=== PATIENT | female | born 1990 | race Caucasian/White ===

== ENCOUNTER 2017-07-13 13:05 | Emergency (ER) | payer BC, MEDICAID ==
[~2017-07-13] VITALS: Ht 182.9 cm; Wt 79.4 kg
[2017-07-13] MEDS ORDERED: [UNRECOGNIZED DRUG - OTHER] (13:26)
[2017-07-13 14:37] LABS: BASOPHILS % (AUTO) 0 % (0-10); EOSINOPHILS # (AUTO) 0.1 10^3/uL (0.0-0.3); EOSINOPHILS % (AUTO) 1 % (0-10); LYMPHOCYTES # (AUTO) 1.8 X 10^3 (1.0-4.0); LYMPHOCYTES % (AUTO) 22 % (12-44); MEAN CORPUSCULAR HEMOGLOBIN 32 PG (25-34); MEAN CORPUSCULAR HGB CONC 34 G/DL (32-36); MEAN CORPUSCULAR VOLUME 94 FL (80-99); MEAN PLATELET VOLUME 10.2 FL (7.4-10.4); MONOCYTES # (AUTO) 0.5 X 10^3 (0.0-1.0); MONOCYTES % (AUTO) 7 % (0-12); NEUTROPHILS # (AUTO) 5.9 X 10^3 (1.8-7.8); NEUTROPHILS % (AUTO) 71 % (42-75); PLATELET COUNT 263 10^3/uL (130-400); RED BLOOD COUNT 4.45 10^6/uL (4.35-5.85); RED CELL DISTRIBUTION WIDTH 12.5 % (10.0-14.5); WHITE BLOOD COUNT 8.3 10^3/uL (4.3-11.0)
--- NOTE | 2017-07-13 14:37 | ED GU-Female ---
General Chief Complaint: -Female Stated Complaint: 10 WKS PREG/SPOTTING/CRAMPS Nursing Triage Note: AMB TO ROOM REPORTS IS APX 9 WEEKS PREG WAS SEEN ON FRIDAY AT [facility] FOR UTI STARTED ON OMINCEF TODAY APX 3-4 HRS UNDERBASTER ONSET OF SPOTTING WTIH CRAMPING REPORTS LOOKS LIKE MAY BE PASSING SOME TISSUE. WAS TOLD BY [facility] TO COME HERE DUE TO THEY HAVE NO WAY TO DO SONO. Nursing Sepsis Screen: No Definite Risk Source: patient Exam Limitations: no limitations History of Present Illness Time seen by provider: 14:36 Initial Comments 27-year-old female patient presents to the emergency Department with reports of vaginal bleeding and lower abdominal cramping beginning today. Patient is approximately 9 weeks based on her last ultrasound by Dr. Sandy. Was seen Friday at [facility] in [place] and diagnosed with urinary tract infection. Patient states she started on Omnicef today. Denies fever, dysuria , frequency. Patient states she has seen Dr. washington for this in [place]. States the first ultrasound performed by Dr. washington reported her to be 4 weeks ; however, patient states she should have been approximately 9 weeks at the time of ultrasound. Patient reports by last menstrual period she should be approximately 12-13 weeks now. Eleni is concerned that she has miscarried as she does not have morning sickness like with her previous pregnancies and her breasts are no longer tender. Timing/Duration: this morning Severity/Quality: cramping Location: suprapubic Radiation: none Prior Genitourinary Problems: similar symptoms Sexual [place] History: less than 2 months ago, single partner Allergies and Home Medications Home Medications [Omincef] , (Reported) Constitutional: No chills, No dizziness, No fever, No malaise, No weakness Respiratory: No cough, No dyspnea on exertion, No short of breath Cardiovascular: No chest pain, No edema, No syncope Gastrointestinal: abdominal pain (lower abdominal cramping), No constipation, No diarrhea, No nausea, No vomiting Genitourinary: denies burning, denies discharge, denies dysuria, denies frequency, denies flank pain, denies hematuria, pain (suprapubic) Musculoskeletal: no symptoms reported Skin: no symptoms reported Psychiatric/Neurological: No Symptoms Reported All Other Systemes Reviewed Negative Unless Noted: Yes (Negative excepted noted.) Past Obortkw-Vmncvo-Apstow Hx Patient Social History Alcohol Use: Denies Use Recreational Drug Use: No Smoking Status: Never a Smoker Recent Foreign Travel: No Contact w/Someone Who Travel: No Recent Infectious Disease Expo: No Surgeries History of Surgeries: No Respiratory History of Respiratory Disorde: No Cardiovascular History of Cardiac Disorders: No Neurological History of Neurological Disord: No Reproductive System : Yes Hx : 6 Hx Para: 3 Hx Total # of Abortions (Spona: 2 Hx Reproductive Disorders: No Sexually Transmitted Disease: No Female Reproductive Disorders: Denies Genitourinary History of Genitourinary Disor: No Gastrointestinal History of Gastrointestinal Di: No Musculoskeletal History of Musculoskeletal Dis: No Endocrine History of Endocrine Disorders: No Reviewed Nursing Assessment Reviewed/Agree w Nursing PMH: Yes Family Medical History Significant Family History: No Pertinent Family Hx Physical Exam Vital Signs Vital Sign - Last 12Hours 07/13/17 07/13/17 13:16 16:54 Temp 97.9 Pulse 86 Resp 18 B/P (MAP) 132/85 Pulse Ox 99 Capillary Refill : Less Than 3 Seconds General Appearance: WD/WN, no apparent distress HEENT: PERRL/EOMI, pharynx normal Neck: supple, normal inspection Cardiovascular: normal peripheral pulses, regular rate, rhythm, no edema, no murmur Respiratory: lungs clear, normal breath sounds, no respiratory distress, no accessory muscle use Gastrointestinal: normal bowel sounds, non tender, soft, no organomegaly, No distended Back: normal inspection, no CVA tenderness Extremities: no pedal edema, no calf tenderness, normal capillary refill Neurologic/Psychiatric: alert, normal mood/affect, oriented x 3 Skin: normal color, warm/dry Progress/Results/Core Measures Results/Orders Lab Results Laboratory Tests Test 07/13/17 14:15 07/13/17 15:56 Range/Units White Blood Count 8.3 4.3-11.0 10^3/uL Red Blood Count 4.45 4.35-5.85 10^6/uL Hemoglobin 14.2 11.5-16.0 G/DL Hematocrit 42 35-52 % Mean Corpuscular Volume 94 80-99 FL Mean Corpuscular Hemoglobin 32 25-34 PG Mean Corpuscular Hemoglobin Concent 34 32-36 G/DL Red Cell Distribution Width 12.5 10.0-14.5 % Platelet Count 263 130-400 10^3/uL Mean Platelet Volume 10.2 7.4-10.4 FL Neutrophils (%) (Auto) 71 42-75 % Lymphocytes (%) (Auto) 22 12-44 % Monocytes (%) (Auto) 7 0-12 % Eosinophils (%) (Auto) 1 0-10 % Basophils (%) (Auto) 0 0-10 % Neutrophils # (Auto) 5.9 1.8-7.8 X 10^3 Lymphocytes # (Auto) 1.8 1.0-4.0 X 10^3 Monocytes # (Auto) 0.5 0.0-1.0 X 10^3 Eosinophils # (Auto) 0.1 0.0-0.3 10^3/uL Basophils # (Auto) 0.0 0.0-0.1 10^3/uL Human Chorionic Gonadotropin, Quant [id number] H <5 MIU/ML Urine Color YELLOW Urine Clarity CLEAR Urine pH 7 5-9 Urine Specific [place] 1.010 L 1.016-1.022 Urine Protein NEGATIVE NEGATIVE Urine Glucose (UA) NEGATIVE NEGATIVE Urine Ketones NEGATIVE NEGATIVE Urine Nitrite NEGATIVE NEGATIVE Urine Bilirubin NEGATIVE NEGATIVE Urine Urobilinogen NORMAL NORMAL MG/DL Urine Leukocyte Esterase NEGATIVE NEGATIVE Urine RBC (Auto) NEGATIVE NEGATIVE Urine RBC NONE /HPF Urine WBC NONE /HPF Urine Squamous Epithelial Cells 5-10 /HPF Urine Crystals NONE /LPF Urine Bacteria NEGATIVE /HPF Urine Casts NONE /LPF Urine Mucus NEGATIVE /LPF Urine Culture Indicated NO My Orders Orders - JOHN MAYEN Cbc With Automated Diff (07/13/17 13:56) Hcg,Quantitative (07/13/17 13:56) Ua Culture If Indicated (07/13/17 13:56) Abo Rh Type (07/13/17 13:56) Us Ob Single Fetus<14 [id number] (07/13/17 13:56) Vital Signs/I&O Vital Sign - Last 12Hours 07/13/17 07/13/17 13:16 16:54 Temp 97.9 Pulse 86 75 Resp 18 18 B/P (MAP) 132/85 Pulse Ox 99 Blood Pressure Mean: 101 Diagnostic Imaging Diagonstic Imaging: Ultrasound Plain Films/CT/US/NM/MRI: pelvis Comments FINDINGS: The uterus measures 10.5 x 8.3 x 7.6 cm in size. There is an intrauterine gestational sac versus pseudogestational sac which measures 2.6 x 2.1 cm in size. There is no demonstrated pole or yolk sac. There are crescentic areas of hypoechogenicity adjacent to the cystic structure which potentially could relate to subchorionic hematoma. The right and left ovary are not well seen. There is no demonstrated adnexal mass. There is no free pelvic fluid. IMPRESSION: 1. Gestational sac versus pseudogestational sac measuring 2.6 x 2.1 cm in size. Gestational sac measurements would predict age of 7 weeks and 5 days +/-1 week. No identified yolk sac or pole. Recommend correlation with beta hCG values and clinically. 2. Nonvisualization of the ovaries. 3. No demonstrated adnexal mass. 4. No free pelvic fluid. 5. Crescentic hypoechoic areas subjacent to the cystic structure in the uterus which may relate to subchorionic hematoma. Dictated by: Dictated on workstation # [id number] Reviewed: Reviewed by Me (radiology report reviewed by me) Departure Communication (Admissions) Progress Notes [facility] records reviewed. the only progress note or H&P is from the quick care visit on fr[facility]. No record of ultrasound performed at [place] in documentation faxed from [facility]. [id number] all laboratory and diagnostic findings discussed with the patient. Patient reports that during the ultrasound by Dr. Sandy they were able to see a pole and gestational sac. I discussed with the patient that based on her symptoms, history, and ultrasound findings she is most likely having a threatened miscarriage versus blighted ovum. Patient is to follow-up with Dr. Sandy for recheck. Patient states she would like to transfer her obstetrical care to [facility]. I've given patient the local physician listing. She states she would like to see someone in Dr. Ramirez/Dr. Mayer's office to establish care. Patient will call Dr. Ramirez's office tomorrow morning for appointment time. Impression Impression: Primary Impression: Threatened miscarriage Disposition: HOME, SELF-CARE Condition: Improved Departure-Patient Inst. Decision time for Depature: 16:45 Referrals: NO,LOCAL PHYSICIAN (PCP/Family) Primary Care Physician Patient Instructions: Bleeding With (DC), Threatened Miscarriage (DC) Add. Discharge Instructions: All discharge instructions reviewed with patient and/or family. Voiced understanding. Continue usual home medications. Drink plenty of fluids. No intercourse, tampons, or strenuous activity until released by Dr. Sandy. Follow -up with Dr. Sandy Friday or Friday for recheck, repeat labs, and repeat outpatient ultrasound. Call first thing Friday morning for appointment time. Return to the emergency department for worsened pain, vaginal bleeding with greater than 2 pads per hour for greater than 2 hours, vaginal discharge, inability to urinate, abdominal swelling, or any other concerns. 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 Sandy. Copy Copies To 1: ARIS RAMIREZ GRETCHEN L PA Jul 13, 2017 14:37
--- NOTE | 2017-07-13 15:48 | Diagnostic Imaging Report ---
EXAM: Ultrasound OB less than 14 weeks. DATE: July 13, 2017. INDICATION: 27-year-old female, spotting and cramping. COMPARISON: None. FINDINGS: The uterus measures 10.5 x 8.3 x 7.6 cm in size. There is an intrauterine gestational sac versus pseudogestational sac which measures 2.6 x 2.1 cm in size. There is no demonstrated pole or yolk sac. There are crescentic areas of hypoechogenicity adjacent to the cystic structure which potentially could relate to subchorionic hematoma. The right and left ovary are not well seen. There is no demonstrated adnexal mass. There is no free pelvic fluid. IMPRESSION: 1. Gestational sac versus pseudogestational sac measuring 2.6 x 2.1 cm in size. Gestational sac measurements would predict age of 7 weeks and 5 days +/-1 week. No identified yolk sac or pole. Recommend correlation with beta hCG values and clinically. 2. Nonvisualization of the ovaries. 3. No demonstrated adnexal mass. 4. No free pelvic fluid. 5. Crescentic hypoechoic areas subjacent to the cystic structure in the uterus which may relate to subchorionic hematoma. Dictated by: Dictated on workstation # [id number]
[2017-07-13 16:06] LABS: BILIRUBIN,URINE NEGATIVE (NEGATIVE); KETONES,URINE NEGATIVE (NEGATIVE); LEUKOCYTE ESTERASE ,URINE NEGATIVE (NEGATIVE); NITRITE,URINE NEGATIVE (NEGATIVE); PH,URINE 7 (5-9); PROTEIN,URINE NEGATIVE (NEGATIVE); UROBILINOGEN,URINE NORMAL (NORMAL)
[2017-07-13 16:54] VITALS: BP 130/78
== END 2017-07-13 16:54 | disposition home or self-care (01) ==
LOC: ER 13:11
DX: O20.0 Threatened abortion (principal); Z3A.01 Less than 8 weeks gestation of pregnancy
CPT/HCPCS: 36415; 76801; 81000; 84702; 85025; 86900; 86901; 99282

== ENCOUNTER 2017-11-07 14:43 | Emergency (ER) | payer BC, MEDICAID ==
[~2017-11-07] VITALS: Ht 180.3 cm; Wt 77.1 kg
[~2017-11-07 14:43] MED LIST: [UNRECOGNIZED DRUG - OTHER]
[2017-11-07 15:37] LABS: BASOPHILS % (AUTO) 0 % (0-10); EOSINOPHILS # (AUTO) 0.1 10^3/uL (0.0-0.3); EOSINOPHILS % (AUTO) 1 % (0-10); HEMATOCRIT 37 % (35-52); HEMOGLOBIN 12.6 G/DL (11.5-16.0); LYMPHOCYTES # (AUTO) 2.4 X 10^3 (1.0-4.0); LYMPHOCYTES % (AUTO) 20 % (12-44); MEAN CORPUSCULAR HEMOGLOBIN 31 PG (25-34); MEAN CORPUSCULAR HGB CONC 34 G/DL (32-36); MEAN CORPUSCULAR VOLUME 92 FL (80-99); MEAN PLATELET VOLUME 9.7 FL (7.4-10.4); MONOCYTES # (AUTO) 0.7 X 10^3 (0.0-1.0); MONOCYTES % (AUTO) 6 % (0-12); NEUTROPHILS # (AUTO) 8.6 X 10^3 (1.8-7.8); NEUTROPHILS % (AUTO) 72 % (42-75); PLATELET COUNT 259 10^3/uL (130-400); RED BLOOD COUNT 4.01 10^6/uL (4.35-5.85); RED CELL DISTRIBUTION WIDTH 13.6 % (10.0-14.5); WHITE BLOOD COUNT 11.8 10^3/uL (4.3-11.0)
--- NOTE | 2017-11-07 15:43 | ED GU-Female ---
General Chief Complaint: -Female Stated Complaint: CRAMPING/VAG BLEEDING 13 WKS PREG Source: patient Exam Limitations: no limitations History of Present Illness Date Seen by Provider: Nov 07, 2017 Time Seen by Provider: 15:42 Initial Comments To ER with vaginal bleeding and lower abdominal cramping. The cramping began earlier this morning and was mild and the bleeding begins afternoon and also is mild. She's only had a bit of blood on the toilet paper when wiping after urinating. No fevers or chills. She is about 13 weeks gestation Ab2. Her voice professor is Dr. Antonino Sandy in [place] and she has follow-up scheduled with him on November 20. She is currently on prenatals with extra folic acid and progesterone Timing/Duration: constant Severity/Quality: cramping Location: suprapubic Radiation: none Sexual [place] History: not active Associated Symptoms: denies symptoms Allergies and Home Medications Home Medications Buspirone HCl 15 Mg Tablet, (Reported) Folic Acid 1 Mg Tablet, (Reported) Progesterone,Micronized 200 Mg Capsule, (Reported) [ Vit] , Unknown Dose, (Reported) Constitutional: see HPI EENTM: see HPI Respiratory: no symptoms reported Cardiovascular: no symptoms reported Genitourinary: no symptoms reported Musculoskeletal: no symptoms reported Skin: no symptoms reported Psychiatric/Neurological: No Symptoms Reported Past Atwgupk-Eiauti-Lyefvf Hx Patient Social History Recent Foreign Travel: No Contact w/Someone Who Travel: No Surgeries History of Surgeries: No Respiratory History of Respiratory Disorde: No Cardiovascular History of Cardiac Disorders: No Neurological History of Neurological Disord: No Reproductive System Hx Reproductive Disorders: No Sexually Transmitted Disease: No Female Reproductive Disorders: Denies Genitourinary History of Genitourinary Disor: No Gastrointestinal History of Gastrointestinal Di: No Musculoskeletal History of Musculoskeletal Dis: No Endocrine History of Endocrine Disorders: No Family Medical History Significant Family History: No Pertinent Family Hx Physical Exam Vital Signs Vital Sign - Last 12Hours 11/07/17 15:32 Temp 97.9 Pulse 94 Resp 18 B/P (MAP) 107/73 (84) Pulse Ox 99 Capillary Refill : General Appearance: WD/WN, no apparent distress HEENT: PERRL/EOMI Neck: non-tender, full range of motion Cardiovascular: regular rate, rhythm, no murmur Respiratory: normal breath sounds, no respiratory distress, no accessory muscle use Gastrointestinal: normal bowel sounds, non tender Neurologic/Psychiatric: alert, normal mood/affect, oriented x 3 Skin: normal color, warm/dry Progress/Results/Core Measures Suspected Sepsis SIRS Temperature: Pulse: Respiratory Rate: Laboratory Tests 11/07/17 15:31: White Blood Count 11.8H Blood Pressure / Mean: Laboratory Tests 11/07/17 15:31: Platelet Count 259 Results/Orders Lab Results Laboratory Tests Test 11/07/17 15:31 11/07/17 15:55 Range/Units White Blood Count 11.8 H 4.3-11.0 10^3/uL Red Blood Count 4.01 L 4.35-5.85 10^6/uL Hemoglobin 12.6 11.5-16.0 G/DL Hematocrit 37 35-52 % Mean Corpuscular Volume 92 80-99 FL Mean Corpuscular Hemoglobin 31 25-34 PG Mean Corpuscular Hemoglobin Concent 34 32-36 G/DL Red Cell Distribution Width 13.6 10.0-14.5 % Platelet Count 259 130-400 10^3/uL Mean Platelet Volume 9.7 7.4-10.4 FL Neutrophils (%) (Auto) 72 42-75 % Lymphocytes (%) (Auto) 20 12-44 % Monocytes (%) (Auto) 6 0-12 % Eosinophils (%) (Auto) 1 0-10 % Basophils (%) (Auto) 0 0-10 % Neutrophils # (Auto) 8.6 H 1.8-7.8 X 10^3 Lymphocytes # (Auto) 2.4 1.0-4.0 X 10^3 Monocytes # (Auto) 0.7 0.0-1.0 X 10^3 Eosinophils # (Auto) 0.1 0.0-0.3 10^3/uL Basophils # (Auto) 0.0 0.0-0.1 10^3/uL Human Chorionic Gonadotropin, Quant [id number] H <5 MIU/ML Urine Color YELLOW Urine Clarity CLEAR Urine pH 5 5-9 Urine Specific [place] 1.030 H 1.016-1.022 Urine Protein NEGATIVE NEGATIVE Urine Glucose (UA) NEGATIVE NEGATIVE Urine Ketones NEGATIVE NEGATIVE Urine Nitrite NEGATIVE NEGATIVE Urine Bilirubin NEGATIVE NEGATIVE Urine Urobilinogen NORMAL NORMAL MG/DL Urine Leukocyte Esterase NEGATIVE NEGATIVE Urine RBC (Auto) 3+ H NEGATIVE Urine RBC RARE /HPF Urine WBC NONE /HPF Urine Squamous Epithelial Cells 5-10 /HPF Urine Crystals NONE /LPF Urine Bacteria TRACE /HPF Urine Casts NONE /LPF Urine Mucus NEGATIVE /LPF Urine Culture Indicated NO My Orders Orders - OMEGA CROSS APRN Cbc With Automated Diff (11/07/17 14:50) Ua Culture If Indicated (11/07/17 14:50) Urine Bedside (11/07/17 14:50) Hcg,Quantitative (11/07/17 14:50) Us Ob Single Fetus<14 [id number] (11/07/17 14:50) Vital Signs/I&O Vital Sign - Last 12Hours 11/07/17 15:32 Temp 97.9 Pulse 94 Resp 18 B/P (MAP) 107/73 (84) Pulse Ox 99 Capillary Refill : Diagnostic Imaging Diagonstic Imaging: Ultrasound Comments NAME: [facility] REC#: [id number] PT STATUS: REG ER : 1990 PHYSICIAN: OMEGA CROSS APRN ADMIT DATE: 11/07/17/ER Draft Date of Exam:11/07/17 US OB SINGLE FETUS<14 [id number] PROCEDURE: US OB SINGLE FETUS <14 WKS. TECHNIQUE: Multiple real-time grayscale images were obtained over the gravid uterus in various projections. INDICATION: Bleeding and cramping since this morning. COMPARISON: 07/13/2017. FINDINGS: A gestational sac is appropriately positioned within the uterus. The gestational sac has a normal morphology. Single live intrauterine is noted. The heart rate is 144 beats per minute. The amount of amniotic fluid appears visually appropriate. Based on crown-rump length, the estimated gestational age is 12 weeks and 3 days. A small subchorionic hemorrhage is noted and is of mixed echogenicity located along the margin of the gestational sac. This measures 2.9 x 1.5 x 0.9 cm. The adnexa are obscured by overlying bowel gas and therefore the ovaries are not seen. No free pelvic fluid. IMPRESSION: 1. Single live intrauterine . 2. Small subchorionic hemorrhage. The cervix remains closed. Dictated on workstation # [id number] Dict: 11/07/17 1538 Trans: 11/07/17 1542 [id number] Interpreted by: DWIGHT GAITAN MD Electronically signed by: Departure Impression Impression: Primary Impression: Threatened miscarriage in early Additional Impression: Vaginal bleeding affecting early Disposition: 01 HOME, SELF-CARE Condition: Stable Departure-Patient Inst. Decision time for Depature: 16:25 Referrals: NO,LOCAL PHYSICIAN (PCP/Family) Primary Care Physician Patient Instructions: Bleeding With (DC), Threatened Miscarriage Add. 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 It is imperative to follow-up with your voice professor next week. Return to ER for any concerns. Unfortunately there is nothing to be done to stop a miscarriage if it is going to happen at this stage of . Hopefully, this will progress into a normal without any further troubles. Continue current medications. OMEGA CROSS APRN Nov 07, 2017 15:43
[2017-11-07] MEDS ORDERED: BUSP15TA60 (15:48)
[2017-11-07] MEDS ORDERED: PRENATAL VIT (15:48)
[2017-11-07] MEDS ORDERED: FOLI1TAB24 (15:48)
[2017-11-07] MEDS ORDERED: PROG200C6 (15:48)
[2017-11-07 16:00] LABS: BILIRUBIN,URINE NEGATIVE (NEGATIVE); CLARITY,URINE CLEAR; COLOR,URINE YELLOW; GLUCOSE, URINE (UA) NEGATIVE (NEGATIVE); KETONES,URINE NEGATIVE (NEGATIVE); LEUKOCYTE ESTERASE ,URINE NEGATIVE (NEGATIVE); NITRITE,URINE NEGATIVE (NEGATIVE); PH,URINE 5 (5-9); PROTEIN,URINE NEGATIVE (NEGATIVE); UROBILINOGEN,URINE NORMAL (NORMAL)
[2017-11-07 16:08] LABS: BACTERIA,URINE TRACE /HPF; RBC,URINE RARE /HPF
[2017-11-07 16:38] VITALS: BP 107/73
== END 2017-11-07 16:37 | disposition home or self-care (01) ==
LOC: EDUNIT# 14:43 → ER 14:46
DX: O20.0 Threatened abortion (principal); Z3A.13 13 weeks gestation of pregnancy
CPT/HCPCS: 36415; 76801; 81000; 84702; 85025; 99282

== ENCOUNTER → 2019-07-16 | Outpatient (CLI) | payer MEDICAID ==
[~2019-07-16] MED LIST changes: +BUSP15TA60; +FOLI1TAB24; +PRENATAL VIT; +PROG200C10
--- NOTE | 2019-07-16 16:37 | Diagnostic Imaging Report ---
Indication: Low back pain Lumbar spine AP and lateral views of the lumbar spine show normal vertebral body height and alignment. Disc spaces are normal. The pedicles are intact. IMPRESSION: Negative lumbar spine Dictated by: Dictated on workstation # [id number]
--- NOTE | 2019-07-16 16:37 | Diagnostic Imaging Report ---
Indication: Neck pain Cervical spine AP and lateral views of the cervical spine were obtained. The odontoid is intact. Atlantoaxial relationship is normal. Vertebral body height and alignment appear normal. Disc spaces are normal. There is no fracture or prevertebral soft tissue swelling. IMPRESSION: Negative cervical spine Dictated by: Dictated on workstation # [id number]
--- NOTE | 2019-07-16 16:41 | Diagnostic Imaging Report ---
Indication: Mid back pain Thoracic spine AP and lateral views of the thoracic spine were obtained. Vertebral body height and alignment appear normal. Intervertebral disc spaces are normal. There is very slight curvature of the upper thoracic spine convex the right centered at C4-C5. This is only a few degrees of curvature. IMPRESSION: Minimal scoliotic curvature of the upper thoracic spine. No acute abnormality seen. Dictated by: Dictated on workstation # [id number]
== END ==
LOC: RAD FS 16:00
PROVIDERS: ATTEND Nurse Practitioner Family
DX: M54.5 Low back pain (principal); M54.2 Cervicalgia; M54.6 Pain in thoracic spine
CPT/HCPCS: 72040; 72072; 72100

== ENCOUNTER 2020-05-03 09:29 | Emergency (ER) | payer MEDICAID ==
[~2020-05-03] VITALS: Ht 180.3 cm; Wt 80.8 kg
--- NOTE | 2020-05-03 09:32 | NUR ---
EKG completed, full monitoring is applied. Patient is pain free on arrival. See triage record. Reports her hands are tingling. Dr Gudino explaining about adrenaline and anxiousness.
--- NOTE | 2020-05-03 09:34 | ED Chest Pain ---
General Stated Complaint: CHEST PAIN Source: patient Exam Limitations: no limitations History of Present Illness Date Seen by Provider: May 03, 2020 Time Seen by Provider: 09:34 Initial Comments 29-year-old female presents with onset of sharp chest pain while eating breakfast this morning. The pain lasted a few seconds and was followed by an irregular heartbeat which continued for several minutes. Patient became a bit concerned and came to the ER and while in her car prior to arrival in her fingertips began to tingle and her face became numb. Denies history of heart or lung problems. Denies history of panic disorder or anxiety issues. No significant recent stressor. Patient taken no stimulant medications. Allergies and Home Medications Allergies Coded Allergies: No Known Drug Allergies (Unverified , 05/03/20) Patient Home Medication List Home Medication List Reviewed: Yes Review of Systems Review of Systems Constitutional: see HPI; No dizziness, No fever, No malaise, No weakness Respiratory: Denies Cough, Denies Shortness of Air Cardiovascular: Denies Chest Pain, Denies Edema; Irregular Heart Rate; Denies Lightheadedness; Palpitations; Denies Syncope Gastrointestinal: Denies Abdominal Pain, Denies Nausea, Denies Poor Appetite, Denies Vomiting Musculoskeletal: No back pain, No joint pain, No neck pain Psychiatric/Neurological: Denies Depressed, Denies Emotional Problems, Denies Headache; Numbness; Denies Paresthesia, Denies Seizure, Denies Tingling, Denies Tremors, Denies Weakness Past Xjygcex-[id number]-Uetczf Hx Past Med/Social Hx: Reviewed Nursing Past Med/Soc Hx Past Medical History Surgeries: No Respiratory: No Cardiac: No Neurological: No Reproductive Disorders: No Female Reproductive Disorders: Denies Sexually Transmitted Disease: No Genitourinary: No Gastrointestinal: No Musculoskeletal: No Endocrine: No Family Medical History No Pertinent Family Hx Physical Exam Vital Signs Vital Signs - First Documented 05/03/20 09:30 Temp 36.1 Pulse 65 Resp 16 B/P (MAP) 114/69 (84) Pulse Ox 100 O2 Delivery Room Air Capillary Refill : Height, Weight, BMI Height: 5'11.00" Weight: 170lbs. oz. 77.436633fv; BMI Method:Stated General Appearance: No Apparent Distress, WD/WN HEENT: PERRL/EOMI, Normal ENT Inspection Neck: Full Range of Motion, Non Tender, Supple Respiratory: Chest Non Tender, Lungs Clear, Normal Breath Sounds Cardiovascular: Regular Rate, Rhythm, No Edema, No Gallop, No JVD, No Murmur, Normal Peripheral Pulses Gastrointestinal: Non Tender, Soft Extremity: Normal Capillary Refill, Non Tender, No Calf Tenderness Neurologic/Psychiatric: Alert, Oriented x3, No Motor/Sensory Deficits, Normal Mood/Affect Progress/Results/Core Measures Results/Orders Lab Results Laboratory Tests Test 05/03/20 09:42 Range/Units White Blood Count 7.1 4.3-11.0 10^3/uL Red Blood Count 4.20 L 4.35-5.85 10^6/uL Hemoglobin 13.2 11.5-16.0 G/DL Hematocrit 40 35-52 % Mean Corpuscular Volume 94 80-99 FL Mean Corpuscular Hemoglobin 31 25-34 PG Mean Corpuscular Hemoglobin Concent 33 32-36 G/DL Red Cell Distribution Width 12.5 10.0-14.5 % Platelet Count 225 130-400 10^3/uL Mean Platelet Volume 10.1 7.4-10.4 FL Neutrophils (%) (Auto) 67 42-75 % Lymphocytes (%) (Auto) 27 12-44 % Monocytes (%) (Auto) 4 0-12 % Eosinophils (%) (Auto) 1 0-10 % Basophils (%) (Auto) 0 0-10 % Neutrophils # (Auto) 4.7 1.8-7.8 X 10^3 Lymphocytes # (Auto) 1.9 1.0-4.0 X 10^3 Monocytes # (Auto) 0.3 0.0-1.0 X 10^3 Eosinophils # (Auto) 0.1 0.0-0.3 10^3/uL Basophils # (Auto) 0.0 0.0-0.1 10^3/uL Sodium Level 140 135-145 MMOL/L Potassium Level 3.7 3.6-5.0 MMOL/L Chloride Level 106 98-107 MMOL/L Carbon Dioxide Level 24 21-32 MMOL/L Anion Gap 10 5-14 MMOL/L Blood Urea Nitrogen 11 7-18 MG/DL Creatinine 0.64 0.60-1.30 MG/DL Estimat Glomerular Filtration Rate > 60 BUN/Creatinine Ratio 17 Glucose Level 133 H 70-105 MG/DL Calcium Level 9.2 8.5-10.1 MG/DL Corrected Calcium 9.0 8.5-10.1 MG/DL Total Bilirubin 0.4 0.1-1.0 MG/DL Aspartate Amino Transf (AST/SGOT) 16 5-34 U/L Alanine Aminotransferase (ALT/SGPT) 15 0-55 U/L Alkaline Phosphatase 95 40-136 U/L Total Protein 6.3 L 6.4-8.2 GM/DL Albumin 4.2 3.2-4.5 GM/DL My Orders Orders - RUBEN WILSON DO Cbc With Automated Diff (05/03/20 09:41) Comprehensive Metabolic Panel (05/03/20 09:41) Chest 1 View Ap/Pa Only (05/03/20 09:41) Ekg Tracing (05/03/20 09:41) Urine Bedside (05/03/20 09:58) Vital Signs/I&O 05/03/20 09:30 Temp 36.1 Pulse 65 Resp 16 B/P (MAP) 114/69 (84) Pulse Ox 100 O2 Delivery Room Air Initial ECG Impression Time: 09:30 Initial ECG Rhythm: Normal Sinus Initial ECG Intervals: Normal Initial ECG Impression: Normal Diagnostic Imaging Diagonstic Imaging: Xray Plain Films/CT/US/NM/MRI: chest Comments Impression: There is no radiographic evidence of acute cardiopulmonary process. Dictated on workstation # [id number] Dict: 05/03/20 1007 Trans: 05/03/20 1009 VIANEY [id number] Interpreted by: FRANCISCO J COTTER MD Electronically signed by: Departure Impression Primary Impression: Palpitations Additional Impression: Chest pain Qualified Codes: R07.9 - Chest pain, unspecified Disposition: 01 HOME, SELF-CARE Condition: Improved Departure-Patient Inst. Decision time for Depature: 09:56 Referrals: [facility] (PCP) Primary Care Physician GARRET BULLOCK APRN (Family) Primary Care Physician Patient Instructions: Chest Pain (DC), Palpitations (DC) RUBEN WILSON DO May 03, 2020 09:34
--- NOTE | 2020-05-03 09:42 | NUR ---
Blood draw LAC first attempt.
[2020-05-03 09:45] VITALS: BP 114/69
--- NOTE | 2020-05-03 09:49 | NUR ---
Xray staff arrived, pt uncertain on potential. LMP 2 weeks ago. Holding on PCXR
--- NOTE | 2020-05-03 09:55 | NUR ---
Bedside urine is negative.
[2020-05-03 09:56] LABS: HEMATOCRIT 40 % (35-52); HEMOGLOBIN 13.2 G/DL (11.5-16.0); MEAN CORPUSCULAR HEMOGLOBIN 31 PG (25-34); WHITE BLOOD COUNT 7.1 10^3/uL (4.3-11.0)
--- NOTE | 2020-05-03 09:56 | NUR ---
PCXR completed at this time.
[2020-05-03 09:57] LABS: BASOPHILS % (AUTO) 0 % (0-10); EOSINOPHILS # (AUTO) 0.1 10^3/uL (0.0-0.3); EOSINOPHILS % (AUTO) 1 % (0-10); LYMPHOCYTES # (AUTO) 1.9 X 10^3 (1.0-4.0); LYMPHOCYTES % (AUTO) 27 % (12-44); MEAN CORPUSCULAR HGB CONC 33 G/DL (32-36); MEAN CORPUSCULAR VOLUME 94 FL (80-99); MEAN PLATELET VOLUME 10.1 FL (7.4-10.4); MONOCYTES # (AUTO) 0.3 X 10^3 (0.0-1.0); MONOCYTES % (AUTO) 4 % (0-12); NEUTROPHILS # (AUTO) 4.7 X 10^3 (1.8-7.8); NEUTROPHILS % (AUTO) 67 % (42-75); PLATELET COUNT 225 10^3/uL (130-400); RED CELL DISTRIBUTION WIDTH 12.5 % (10.0-14.5)
[2020-05-03] MEDS ORDERED: FLUC200T5 (09:57)
[2020-05-03 10:00] VITALS: BP 110/70
--- NOTE | 2020-05-03 10:09 | Diagnostic Imaging Report ---
Clinical indication: Patient with chest pain. Exam: Portable chest x-ray upright view. Comparisons: None. Findings: Lungs/pleura: Lungs are clear. There is no pneumothorax. There is no pleural effusion. Mediastinum: Unremarkable. Pulmonary vasculature: Unremarkable. Heart: Unremarkable. Bones/extrathoracic soft tissue: Unremarkable. Impression: There is no radiographic evidence of acute cardiopulmonary process. Dictated by: Dictated on workstation # [id number]
[2020-05-03 10:15] VITALS: BP 110/69
--- OUTSIDE RECORDS SUMMARY | 2020-05-03 10:16 | XMS REPORT | Continuity of Care Document ---
Author Organization Unknown Address Unknown Phone Unavailable Allergies There is no data. Medications There is no data. Problems Date Dx Coded Attending Type Code Diagnosis Diagnosed By 07/13/2017 JOHN SALGADO Ot O20.0 THREATENED 07/13/2017 JOHN SALGADO Ot R10.30 LOWER ABDOMINAL PAIN, UNSPECIFIED 07/13/2017 JOHN SALGADO Ot Z3A.01 LESS THAN 8 WEEKS GESTATION OF 11/07/2017 OMEGA CROSS APRN Ot O20 .0 THREATENED 11/07/2017 OMEGA CROSS APRN Ot O20 .9 HEMORRHAGE IN EARLY , UNSPECIFI 11/07/2017 OMEGA CROSS LAP MACHINE OPERATOR Ot Z3A.13 13 WEEKS GESTATION OF 11/10/2017 OMEGA CROSS LAP MACHINE OPERATOR Ot O20 .0 THREATENED 11/10/2017 OMEGA CROSS LAP MACHINE OPERATOR Ot O20 .9 HEMORRHAGE IN EARLY , UNSPECIFI 11/10/2017 OMEGA CROSS LAP MACHINE OPERATOR Ot Z3A.13 13 WEEKS GESTATION OF 07/20/2019 GARRET BULLOCK LAP MACHINE OPERATOR Ot M54.2 CERVICALGIA 07/20/2019 GARRET BULLOCK LAP MACHINE OPERATOR Ot M54.5 LOW BACK PAIN 07/20/2019 GARRET BULLOCK LAP MACHINE OPERATOR Ot M54.6 PAIN IN THORACIC SPINE Procedures There is no data. Results Test Result Range Complete blood count (CBC) with automate d white blood cell (WBC) differential - 07/13/17 14:15 Blood leukocytes automated count (number/volume) 8.3 10*3/uL 4.3-11.0 Blood erythrocytes automated count (number/volume) 4.45 10*6/uL 4.35-5.85 Venous blood hemoglobin measurement (mass/volume) 14.2 g/dL 11.5-16.0 Blood hematocrit (volume fraction) 42 % 35-52 Automated erythrocyte mean corpuscular volume 94 [ foz_us] 80-99 Automated erythrocyte mean corpuscular h emoglobin (mass per erythrocyte) 32 pg 25-34 Automated erythrocyte mean corpuscular h emoglobin concentration measurement (mass/volume) 34 g/dL 32-36 Automated erythrocyte distribution width ratio 12. 5 % 10.0- 14.5 Automated blood platelet count (count/volume) 263 10*3/uL 130-400 Automated blood platelet mean volume measurement 10.2 [foz_us] 7.4-10.4 Automated blood neutrophils/100 leukocytes 71 % 42-75 Automated blood lymphocytes/100 leukocytes 22 % 12-44 Blood monocytes/100 leukocytes 7 % 0-12 Automated blood eosinophils/100 leukocytes 1 % 0-10 Automated blood basophils/100 leukocytes 0 % 0-10 Blood neutrophils automated count (number/volume) 5.9 10*3 1.8-7.8 Blood lymphocytes automated count (number/volume) 1.8 10*3 1.0-4.0 Blood monocytes automated count (number/volume) 0. 5 10*3 0.0-1.0 Automated eosinophil count 0.1 10*3/uL 0 .0-0.3 Automated blood basophil count (count/volume) 0.0 10*3/uL 0.0-0.1 ABO+Rh group - 07/13/17 14:15 ABO+Rh group OP NRG Transfusion band number [id number] [facility] Serum or plasma choriogonadotropin measu rement (units/volume) - 07/13/17 14:15 Serum or plasma choriogonadotropin measurement (units/ volume) 45889 m[iU]/mL <5 Complete urinalysis with reflex to cultu re - 07/13/17 15:56 Urine color determination YELLOW NRG Urine clarity determination CLEAR NR G Urine pH measurement by test strip 7 5-9 Specific gravity of urine by test strip 1.010 1.016-1.022 Urine protein assay by test strip, semi-quantitative NEGATIVE NEGATIVE Urine glucose detection by automated test strip NE GATIVE NEGATIVE Erythrocytes detection in urine sediment by light micr oscopy NEGATIVE NEGATIVE Urine ketones detection by automated test strip NE GATIVE NEGATIVE Urine nitrite detection by test strip NEGATIVE NEGATIVE Urine total bilirubin detection by test strip NEGA TIVE NEGATIVE Urine urobilinogen measurement by automated test strip (mass/volume) NORMAL NORMAL Urine leukocyte esterase detection by dipstick NEG ATIVE NEGATIVE Automated urine sediment erythrocyte cou nt by microscopy (number/high power field) NONE NRG Automated urine sediment leukocyte count by microscopy (number/high power field) NONE NRG Bacteria detection in urine sediment by light microsco py NEGATIVE NRG Squamous epithelial cells detection in u rine sediment by light microscopy 5-10 NRG Crystals detection in urine sediment by light microsco py NONE NRG Casts detection in urine sediment by light microscopy NONE NRG Mucus detection in urine sediment by light microscopy NEGATIVE NRG Complete urinalysis with reflex to culture NO NRG Complete blood count (CBC) with automate d white blood cell (WBC) differential - 11/07/17 15:31 Blood leukocytes automated count (number/volume) 11.8 10*3/uL 4.3-11.0 Blood erythrocytes automated count (number/volume) 4.01 10*6/uL 4.35-5.85 Venous blood hemoglobin measurement (mass/volume) 12.6 g/dL 11.5-16.0 Blood hematocrit (volume fraction) 37 % 35-52 Automated erythrocyte mean corpuscular volume 92 [ foz_us] 80-99 Automated erythrocyte mean corpuscular h emoglobin (mass per erythrocyte) 31 pg 25-34 Automated erythrocyte mean corpuscular h emoglobin concentration measurement (mass/volume) 34 g/dL 32-36 Automated erythrocyte distribution width ratio 13. 6 % 10.0- 14.5 Automated blood platelet count (count/volume) 259 10*3/uL 130-400 Automated blood platelet mean volume measurement 9.7 [foz_us] 7.4-10.4 Automated blood neutrophils/100 leukocytes 72 % 42-75 Automated blood lymphocytes/100 leukocytes 20 % 12-44 Blood monocytes/100 leukocytes 6 % 0-12 Automated blood eosinophils/100 leukocytes 1 % 0-10 Automated blood basophils/100 leukocytes 0 % 0-10 Blood neutrophils automated count (number/volume) 8.6 10*3 1.8-7.8 Blood lymphocytes automated count (number/volume) 2.4 10*3 1.0-4.0 Blood monocytes automated count (number/volume) 0. 7 10*3 0.0-1.0 Automated eosinophil count 0.1 10*3/uL 0 .0-0.3 Automated blood basophil count (count/volume) 0.0 10*3/uL 0.0-0.1 Serum or plasma choriogonadotropin measu rement (units/volume) - 11/07/17 15:31 Serum or plasma choriogonadotropin measurement (units/ volume) 97257 m[iU]/mL <5 Complete urinalysis with reflex to cultu re - 11/07/17 15:55 Urine color determination YELLOW NRG Urine clarity determination CLEAR NR G Urine pH measurement by test strip 5 5-9 Specific gravity of urine by test strip 1.030 1.016-1.022 Urine protein assay by test strip, semi-quantitative NEGATIVE NEGATIVE Urine glucose detection by automated test strip NE GATIVE NEGATIVE Erythrocytes detection in urine sediment by light micr oscopy 3+ NEGATIVE Urine ketones detection by automated test strip NE GATIVE NEGATIVE Urine nitrite detection by test strip NEGATIVE NEGATIVE Urine total bilirubin detection by test strip NEGA TIVE NEGATIVE Urine urobilinogen measurement by automated test strip (mass/volume) NORMAL NORMAL Urine leukocyte esterase detection by dipstick NEG ATIVE NEGATIVE Automated urine sediment erythrocyte cou nt by microscopy (number/high power field) RARE NRG Automated urine sediment leukocyte count by microscopy (number/high power field) NONE NRG Bacteria detection in urine sediment by light microsco py TRACE NRG Squamous epithelial cells detection in u rine sediment by light microscopy 5-10 NRG Crystals detection in urine sediment by light microsco py NONE NRG Casts detection in urine sediment by light microscopy NONE NRG Mucus detection in urine sediment by light microscopy NEGATIVE NRG Complete urinalysis with reflex to culture NO NRG SUREPATH PAP RFX HPV mRNA E6/E7 - 14:03 CLINICAL INFORMATION: NRG LMP: NRG PREV. PAP: NRG PREV. BX: NRG SOURCE: [employer] NRG STATEMENT OF ADEQUACY: NRG INTERPRETATION/RESULT: NRG FRAME FIXER: NRG COMMENT NRG GC/CHLAMYDIA (SWAB OR URINE)-RAPID - 08:54 CHLAMYDIA TRACHOMATIS RNA, TMA NOT DETECTED NOT DETECTED NEISSERIA GONORRHOEAE RNA, TMA NOT DETECTED NOT DETECTED COMMENT NRG CULTURE, URINE - 07/19/19 08:54 CULTURE, URINE, ROUTINE SEE NOTE NRG CULTURE, VAGINAL YEAST - 07/19/19 08:54 CULTURE, YEAST, W/DIRECT FLUORESCENT ZHANNA SEE NOTE NRG CULTURE, URINE - 07/21/19 11:10 CULTURE, URINE, ROUTINE SEE NOTE NRG TSH w/ FREE T4 - 08/23/19 12:00 TSH 1.65 mIU/L NRG T4, FREE 0.9 ng/dL 0.8-1.8 CMP - 08/23/19 12:00 GLUCOSE 82 mg/dL 65-99 UREA NITROGEN (BUN) 10 mg/dL 7-25 CREATININE 0.67 mg/dL 0.50-1.10 eGFR NON-AFR. TANZANIAN 118 mL/min/1.73m2 > OR = 60 eGFR 137 mL/min/1.73m2 > OR = 60 BUN/CREATININE RATIO NOT APPLICABLE (calc) 6-22 SODIUM 141 mmol/L 135-146 POTASSIUM 4.3 mmol/L 3.5-5.3 CHLORIDE 105 mmol/L 98-110 CARBON DIOXIDE 28 mmol/L 20-32 CALCIUM 9.7 mg/dL 8.6-10.2 PROTEIN, TOTAL 7.0 g/dL 6.1-8.1 ALBUMIN 4.7 g/dL 3.6-5.1 GLOBULIN 2.3 g/dL (calc) 1.9-3.7 ALBUMIN/GLOBULIN RATIO 2.0 (calc) 1.0-2. 5 BILIRUBIN, TOTAL 0.4 mg/dL 0.2-1.2 ALKALINE PHOSPHATASE 105 U/L 33-115 AST 20 U/L 10-30 ALT 19 U/L 6-29 CBC - 08/23/19 12:00 WHITE BLOOD CELL COUNT 7.3 Thousand/uL 3 .8-10.8 RED BLOOD CELL COUNT 4.69 Million/uL 3.8 0-5.10 HEMOGLOBIN 14.6 g/dL 11.7-15.5 HEMATOCRIT 43.2 % 35.0-45.0 MCV 92.1 fL 80.0-100.0 MCH 31.1 pg 27.0-33.0 MCHC 33.8 g/dL 32.0-36.0 RDW 12.1 % 11.0-15.0 PLATELET COUNT 273 Thousand/uL 140-400 MPV 11.0 fL 7.5-12.5 ABSOLUTE NEUTROPHILS 4344 cells/uL 1500- 7800 ABSOLUTE LYMPHOCYTES 2373 cells/uL 850-3 900 ABSOLUTE MONOCYTES 445 cells/uL 200-950 ABSOLUTE EOSINOPHILS 88 cells/uL 15-500 ABSOLUTE BASOPHILS 51 cells/uL 0-200 NEUTROPHILS 59.5 % NRG LYMPHOCYTES 32.5 % NRG MONOCYTES 6.1 % NRG EOSINOPHILS 1.2 % NRG BASOPHILS 0.7 % NRG ESR/SED RATE - 10/25/19 12:49 SED RATE BY MODIFIED WESTERGREN 2 mm/h < OR = 20 LYME, TOTAL ANTIBODY/REFLEX WESTERN BLOT - 10/25/19 12:49 LYME AB SCREEN <0.90 index NRG VITAMIN D, 25-H - 10/25/19 12:49 VITAMIN D,25-OH,TOTAL,IA 34 ng/mL 30-10 0 VITAMIN B12/FOLATE, SERUM PANEL - 12:49 VITAMIN B12 518 pg/mL 200-1100 FOLATE, SERUM 15.8 ng/mL NRG CULTURE, URINE - 04/24/20 18:39 CULTURE, URINE, ROUTINE SEE NOTE NRG Encounters ACCT No. Visit Date/Time Discharge Status Pt. Type Provider Facility Loc./Unit Complaint [id number] 04/24/2020 17:40:00 04/24/2020 23:59:5 9 CLS Outpatient [facility] [id number] 04/24/2020 17:40:00 Document Registration [id number] 10/25/2019 11:20:00 Document Registration [id number] 08/23/2019 11:20:00 Document Registration [id number] 07/21/2019 10:40:00 Document Registration [id number] 07/19/2019 07:30:00 Document Registration [id number] 05/27/2019 14:00:00 Document Registration [id number] 07/16/2019 16:00:00 019 23:59:59 CLS Outpatient ARA GARRET Jaime LAP MACHINE OPERATOR [facility] RAD FS M54.5 M54.2 M54.6 [id number] 11/07/2017 14:46:00 018 16:37:00 DIS Emergency OMEGA CROSS LAP MACHINE OPERATOR [facility] ER CRAMPING/VAG BLEEDING 1 3 WKS PREG [id number] 07/13/2017 13:11:00 017 16:54:00 DIS Emergency JOHN SALGADO [facility] ER 10 WKS PREG/SPOTTING/C RAMPS
[2020-05-03 10:21] LABS: BUN/CREATININE RATIO 17; CARBON DIOXIDE 24 MMOL/L (21-32); CHLORIDE 106 MMOL/L (98-107); CREATININE SERUM 0.64 MG/DL (0.60-1.30); GFR ESTIMATED > 60; POTASSIUM 3.7 MMOL/L (3.6-5.0); SODIUM 140 MMOL/L (135-145)
[2020-05-03 10:22] LABS: ALANINE AMINOTRANSFERASE 15 U/L (0-55); ALBUMIN 4.2 GM/DL (3.2-4.5); ALKALINE PHOSPHATASE 95 U/L (40-136); BILIRUBIN,TOTAL 0.4 MG/DL (0.1-1.0); CALCIUM 9.2 MG/DL (8.5-10.1); GLUCOSE 133 MG/DL (70-105); TOTAL PROTEIN 6.3 GM/DL (6.4-8.2)
[2020-05-03 10:30] VITALS: BP 107/71
[2020-05-03 10:35] VITALS: BP 105/70
== END 2020-05-03 10:35 | disposition home or self-care (01) ==
LOC: EDUNIT# 09:29 → ER FS 09:30
DX: R00.2 Palpitations (principal); R07.9 Chest pain, unspecified
CPT/HCPCS: 36415; 71045; 80053; 84703; 85025

== ENCOUNTER 2020-05-09 09:11 | Outpatient (RCR) | payer MEDICAID ==
[~2020-05-09 09:11] MED LIST changes: +FLUC200T5
== END 2020-08-07 | disposition home or self-care (01) ==
LOC: CARD 09:11
PROVIDERS: ATTEND Nurse Practitioner Family
DX: R00.2 Palpitations (principal)

== ENCOUNTER → 2020-07-10 | Outpatient (CLI) | payer MEDICAID ==
[2020-07-10 12:34] LABS: BASOPHILS % (AUTO) 1 % (0-10); EOSINOPHILS % (AUTO) 0 % (0-10); HEMATOCRIT 40 % (35-52); HEMOGLOBIN 13.7 G/DL (11.5-16.0); LYMPHOCYTES # (AUTO) 1.9 X 10^3 (1.0-4.0); LYMPHOCYTES % (AUTO) 22 % (12-44); MEAN CORPUSCULAR HEMOGLOBIN 32 PG (25-34); MEAN CORPUSCULAR HGB CONC 34 G/DL (32-36); MEAN CORPUSCULAR VOLUME 94 FL (80-99); MEAN PLATELET VOLUME 9.8 FL (7.4-10.4); MONOCYTES # (AUTO) 0.5 X 10^3 (0.0-1.0); MONOCYTES % (AUTO) 6 % (0-12); NEUTROPHILS # (AUTO) 6.1 X 10^3 (1.8-7.8); NEUTROPHILS % (AUTO) 71 % (42-75); PLATELET COUNT 247 10^3/uL (130-400); WHITE BLOOD COUNT 8.6 10^3/uL (4.3-11.0)
== END ==
LOC: LAB FS 12:07
PROVIDERS: ATTEND Family Medicine
DX: Z34.81 Encounter for supervision of other normal pregnancy, first trimester (principal); Z3A.00 Weeks of gestation of pregnancy not specified
CPT/HCPCS: 36415; 80055; 86703; 86762; 87088

== ENCOUNTER 2020-08-28 17:31 | Emergency (ER) | payer MEDICAID ==
[2020-08-28 17:43] VITALS: BP 117/84
[2020-08-28 17:52] LABS: BILIRUBIN,URINE NEGATIVE (NEGATIVE); CLARITY,URINE CLEAR; COLOR,URINE YELLOW; GLUCOSE, URINE (UA) NEGATIVE (NEGATIVE); KETONES,URINE NEGATIVE (NEGATIVE); LEUKOCYTE ESTERASE ,URINE NEGATIVE (NEGATIVE); NITRITE,URINE NEGATIVE (NEGATIVE); PH,URINE 6.5 (5-9); PROTEIN,URINE NEGATIVE (NEGATIVE); WBC,URINE RARE /HPF
[2020-08-28 17:53] LABS: BACTERIA,URINE NEGATIVE /HPF
--- NOTE | 2020-08-28 18:15 | ED General ---
General Chief Complaint: Abdominal/GI Problems Stated Complaint: FEVER,CONGESTION,HEADACHE,ABD PAIN Nursing Triage Note: Started getting sick with fatigue, congestion, fever x 2 days. Had diarrhea yesterday, started having lower abdominal pain and flank pain today. Is 15 weeks . Was told by OB doctor to be evaluated. Temp has been 101 at home. Nursing Sepsis Screen: No Definite Risk Source of Information: Patient History of Present Illness Date Seen by Provider: Aug 28, 2020 Time Seen by Provider: 17:35 Initial Comments 30-year-old female presenting with multiple complaints of last 2-3 days. She has approximately 15 weeks and following with Dr. Johnson for her . This is her fifth and she has had no complications. She states that she has had no vaginal bleeding or discharge in the last 3 days. She did have some spotting about 2 weeks ago but that resolved on its own. She has had no pelvic cramping or pain. She has had upper abdominal cramping and diarrhea. She had some pain going into her back so she was advised to come to the emergency department to be evaluated for possible urine or kidney infection. She has had fever with some congestion and mild cough. She has had fatigue and then run down. About 2 weeks ago she was at [place] for over a week. Then when she got back into town she had seen her mother, who had just been exposed to a person positive for COVID. Her mother is having some similar symptoms of fever, congestion and fatigue. However her mother has also not been tested for COVID. Allergies and Home Medications Allergies Coded Allergies: Sulfa (Sulfonamide Antibiotics) (Unverified Adverse Reaction, Unknown, 05/03/20) Patient Home Medication List Home Medication List Reviewed: Yes Review of Systems Review of Systems Constitutional: chills, fever, malaise EENTM: nose congestion; No ear pain, No eye pain, No mouth pain, No epistaxis, No throat pain Respiratory: cough (mild); No phlegm, No short of breath, No stridor, No wheezing Cardiovascular: No chest pain Gastrointestinal: see HPI Genitourinary: No decreased output, No dysuria, No frequency : Yes Musculoskeletal: muscle stiffness (generalized) Skin: no symptoms reported Psychiatric/Neurological: Headache Hematologic/Lymphatic: No Symptoms Reported Past Nsfuigx-Mwgksp-Amyxte Hx Past Med/Social Hx: Reviewed Nursing Past Med/Soc Hx Patient Social History Alcohol Use: Denies Use Recreational Drug Use: No Smoking Status: Former Smoker Type Used: Cigarettes Former Smoker, Quit: Oct 06, 2007 2nd Hand Smoke Exposure: No Recent Foreign Travel: No Contact w/Someone Who Travel: No Recent Infectious Disease Expo: No Recent Hopitalizations: No Physical Abuse: No Sexual Abuse: No Mistreated: No Fear: No Seasonal Allergies Seasonal Allergies: No Past Medical History Surgeries: No Respiratory: No Cardiac: No Neurological: No Reproductive Disorders: No Female Reproductive Disorders: Denies Sexually Transmitted Disease: No Genitourinary: No Gastrointestinal: No Musculoskeletal: No Endocrine: Yes (Nodule on thyroid) HEENT: No Cancer: No Psychosocial: No Integumentary: No Blood Disorders: No Family Medical History No Pertinent Family Hx Physical Exam Vital Signs Vital Signs - First Documented 08/28/20 17:43 Temp 36.4 Pulse 86 Resp 16 B/P (MAP) 117/84 (95) Pulse Ox 100 Capillary Refill : Less Than 3 Seconds Height, Weight, BMI Height: 5'11.00" Weight: 170lbs. oz. 77.281571gb; 24.00 BMI Method:Stated General Appearance: No Apparent Distress, WD/WN HEENT: PERRL/EOMI, Pharynx Normal Neck: Full Range of Motion, Normal Inspection, Non Tender, Supple Respiratory: Chest Non Tender, Lungs Clear, Normal Breath Sounds, No Accessory Muscle Use, No Respiratory Distress Cardiovascular: Regular Rate, Rhythm, Normal Peripheral Pulses Gastrointestinal: Normal Bowel Sounds, No Pulsatile Mass, Soft; No Mass, No Rebound; Tenderness (upper abdominal tenderness to palpation), Other ( heart tones 160s) Extremity: Normal Capillary Refill, Non Tender, No Calf Tenderness, No Pedal Edema Neurologic/Psychiatric: Alert, Oriented x3, No Motor/Sensory Deficits, family preservation officer II- XII Norm as Tested Skin: Normal Color, Warm/Dry Progress/Results/Core Measures Suspected Sepsis Recent Fever Within 48 Hours: Yes Infection Criteria Present: Suspected New Infection New/Unexplained Altered Menta: No Sepsis Screen: No Definite Risk SIRS Temperature: Pulse: 86 Respiratory Rate: 16 Blood Pressure 117 /84 Mean: 95 Results/Orders Lab Results Laboratory Tests Test 08/28/20 17:40 Range/Units Urine Color YELLOW Urine Clarity CLEAR Urine pH 6.5 5-9 Urine Specific [place] 1.020 1.016-1.022 Urine Protein NEGATIVE NEGATIVE Urine Glucose (UA) NEGATIVE NEGATIVE Urine Ketones NEGATIVE NEGATIVE Urine Nitrite NEGATIVE NEGATIVE Urine Bilirubin NEGATIVE NEGATIVE Urine Urobilinogen 0.2 < = 1.0 MG/DL Urine Leukocyte Esterase NEGATIVE NEGATIVE Urine RBC (Auto) NEGATIVE NEGATIVE Urine RBC NONE /HPF Urine WBC RARE /HPF Urine Squamous Epithelial Cells 2-5 /HPF Urine Crystals NONE /LPF Urine Bacteria NEGATIVE /HPF Urine Casts NONE /LPF Urine Mucus NEGATIVE /LPF Urine Culture Indicated NO My Orders Orders - SHERRY SIN MD Ua Culture If Indicated (08/28/20 17:40) Vital Signs/I&O 08/28/20 17:43 Temp 36.4 Pulse 86 Resp 16 B/P (MAP) 117/84 (95) Pulse Ox 100 Capillary Refill : Less Than 3 Seconds Blood Pressure Mean: 95 Progress Note : Progress Note urine sent to lab on arrival. during exam found FHT and vital signs are reassuring. reviewed with pt that could check basic labs and give her some IV fluids. Her oxygen level was 100% on room air. Her abdomen was soft with mild tenderness to palpation in the upper abdomen. Patient wanted to wait for her urinalysis results which did come back while speaking with the patient during the exam. These did not demonstrate any signs of infection and her specific gravity was 1.020. She had no glucose protein or ketones. When she found out that this was okay and was not showing infection she decided she did not want to do an IV. She would rather just push fluids at home and as far as a COVID test she would rather wait and do that as an outpatient if she gets a test at all. Departure Impression Primary Impression: Diarrhea Qualified Codes: R19.7 - Diarrhea, unspecified Additional Impressions: Abdominal cramping affecting , antepartum Fever in adult Upper respiratory infection, viral Viral syndrome Exposure to COVID-19 virus Disposition: 01 HOME, SELF-CARE Condition: Stable Departure-Patient Inst. Decision time for Depature: 18:12 Referrals: EULALIA JOHNSON MD (PCP) Primary Care Physician [place] LINDSEY APRN (Family) Primary Care Physician Patient Instructions: Coronavirus Disease 2019 (COVID-19) Overview, Viral Syndrome (DC), Viral Upper Respiratory Infection, Adult (DC) Add. Discharge Instructions: Continue to self quarantine and isolate until after you have a negative Covid-19 test or have resolution of your symptoms. Stay well hydrated and try drinking some electrolyte drinks to help replace the salts and electrolytes you might lose with diarrhea. Follow up with Dr. Johnson in clinic or check with her for further concerns. Return or seek medical care for further concerns or worsening symptoms. Use acetaminophen 650 mg every 6-8 hours as needed for fever and body aches All discharge instructions reviewed with patient and/or family. Voiced understanding. SHERRY SIN MD Aug 28, 2020 18:15
== END 2020-08-28 18:19 | disposition home or self-care (01) ==
LOC: EDUNIT# 17:31 → ER FS 17:33
DX: O26.892 Other specified pregnancy related conditions, second trimester (principal); R19.7 Diarrhea, unspecified; R10.9 Unspecified abdominal pain; R50.9 Fever, unspecified; J06.9 Acute upper respiratory infection, unspecified; B34.9 Viral infection, unspecified; Z3A.15 15 weeks gestation of pregnancy; Z87.891 Personal history of nicotine dependence; Z88.2 Allergy status to sulfonamides
CPT/HCPCS: 81000

== ENCOUNTER → 2020-09-12 | Outpatient (CLI) | payer MEDICAID | LOC: LAB FS 15:08 | PROVIDERS: ATTEND Family Medicine | DX: Z34.92 Encounter for supervision of normal pregnancy, unspecified, second trimester (principal); Z3A.00 Weeks of gestation of pregnancy not specified | CPT/HCPCS: 36415; 82105; 84702; 86336 ==

== ENCOUNTER → 2020-10-11 | Outpatient (CLI) | payer MEDICAID | LOC: LABNPT 15:44 | PROVIDERS: ATTEND Family Medicine | DX: R30.9 Painful micturition, unspecified (principal) | CPT/HCPCS: 87088 ==

== ENCOUNTER → 2020-10-16 | Outpatient (CLI) | payer MEDICAID ==
--- NOTE | 2020-10-16 13:06 | Diagnostic Imaging Report ---
INDICATION: survey. TECHNIQUE: Multiple real-time grayscale images were obtained over the gravid uterus. COMPARISON: There are no prior studies available for comparison. FINDINGS: There is a single live fetus in transverse presentation with the head on maternal right. heart motion was noted and a rate of 143 BPM was recorded. There were no abnormalities identified, although the profile was difficult to assess due to lie. The growth parameters are fairly uniform. The placenta is posterior and there is a near complete previa. The cervix was identified and measures approximately 9.9 cm in length. The amniotic fluid volume is within normal limits. Biometrical measurements are as follows: Biparietal 4.72 cm, age 20 weeks 2 days. Head circumference 18.19 cm, age 20 weeks 5 days. Abdominal circumference 16.67 cm, age 21 weeks 5 days. Femur length 3.46 cm, age 21 weeks 0 days. Sonographic estimate age: 21 weeks 0 days. Sonographic estimated date of delivery: 02/26/21. Estimated Weight: 408 gm (+/- 60 gm). LMP percentile: 27%. heart rate: 143 beats per minute. number: 1 of 1. IMPRESSION: 1. There is a single live fetus of approximately 21 weeks gestation +/-1.5 weeks. The EDC is February 26, 2021. 2. There were no abnormalities identified but the profile was not optimally visualized. 3. There does appear to be a near-complete posterior placenta previa. A short-term (6-8 week) follow-up exam would be recommended for further evaluation. 4. The growth parameters are fairly uniform. Dictated by: Dictated on workstation # [id number]
== END ==
LOC: RAD FS 10:02
PROVIDERS: ATTEND Family Medicine
DX: Z34.92 Encounter for supervision of normal pregnancy, unspecified, second trimester (principal); Z3A.21 21 weeks gestation of pregnancy
CPT/HCPCS: 76805

== ENCOUNTER → 2020-12-04 | Outpatient (CLI) | payer MEDICAID ==
[~2020-12-04] MED LIST changes: -FOLI1TAB24; +FOLI1TAB33
--- NOTE | 2020-12-04 12:54 | Diagnostic Imaging Report ---
INDICATION: Follow-up placenta previa. TECHNIQUE: Multiple real-time grayscale images were obtained over the gravid uterus. COMPARISON: 10/16/2020. FINDINGS: There is a single live fetus in a cephalic presentation. heart rate was recorded 146 bpm. Placenta is posterior. There is no longer a placenta previa present. The tip of the placenta to the internal cervical os is approximately 7 cm. Amniotic fluid index is 15 cm. Biometrical measurements are as follows: Biparietal 6.92 cm, age 27 weeks 6 days. Head circumference 26.39 cm, age 28 weeks 6 days. Abdominal circumference 23.20 cm, age 27 weeks 4 days. Femur length 5.53 cm, age 29 weeks 2 days. Sonographic estimate age: 28 weeks 3 days. Sonographic estimated date of delivery: 02/23/2021. Estimated Weight: 1194 gm (+/- 175 gm). LMP percentile: 25%. heart rate: 146 beats per minute. number: 1 of 1. IMPRESSION: Single live IUP approximately 28 weeks gestational age showing normal interval growth when compared to prior exam. Previously noted placenta previa has resolved. Dictated by: Dictated on workstation # [id number]
== END ==
LOC: RAD FS 11:57
PROVIDERS: ATTEND Family Medicine
DX: O44.02 Complete placenta previa NOS or without hemorrhage, second trimester (principal); Z3A.27 27 weeks gestation of pregnancy
CPT/HCPCS: 76805

== ENCOUNTER → 2020-12-06 | Outpatient (CLI) | payer MEDICAID ==
[2020-12-06 10:34] LABS: HEMOGLOBIN 11.2 G/DL (11.5-16.0); WHITE BLOOD COUNT 11.1 10^3/uL (4.3-11.0)
[2020-12-06 10:35] LABS: MEAN PLATELET VOLUME 10.4 FL (7.4-10.4)
== END ==
LOC: LAB FS 09:48
PROVIDERS: ATTEND Family Medicine
DX: Z34.93 Encounter for supervision of normal pregnancy, unspecified, third trimester (principal); Z3A.00 Weeks of gestation of pregnancy not specified
CPT/HCPCS: 36415; 82950; 85027; 86780

== ENCOUNTER 2021-02-22 06:40 | Inpatient (IN) | payer MEDICAID ==
[~2021-02-22] VITALS: Ht 182.9 cm; Wt 100.2 kg
[2021-02-22] VITALS (48 sets, daily range): BP systolic 69–134; BP diastolic 56–82
--- NOTE | 2021-02-22 07:31 | History & Physical-OB ---
OB - Chief Complaint & HPI Date/Time Date of Admission: Date of Admission: February 22, 2021 at 06:40 Date seen by a Provider: February 22, 2021 Time Seen by a Provider: 07:35 Chief Complaint/History OB-Reason for Admission/Chief: Induction of Labor Hx : 7 Hx Para: 4 Expected Date of Delivery: February 22, 2021 Gestational Age in Weeks: 40 Gestational Age in Days: 0 Indication for induction: post dates Admission Nurse Assessment Rev: Yes History of Labs GBS neg Allergies and Home Medications Allergies Coded Allergies: Sulfa (Sulfonamide Antibiotics) (Unverified Adverse Reaction, Unknown, 05/03/20) Patient Home Medication List Home Medication List Reviewed: Yes OB - History Hx of Present Care: Yes Ultrasounds: Normal mid trimester US Obstetrical Complications: None Medical Complications: None Patient Past Medical History n/a Social History/Family History 2nd Hand Smoke Exposure: No OB - Admission Exam Physical Exam HEENT: NCAT Heart: Rhythm Normal Lungs: Clear Abdomen: Gravid Extremities: Normal Reflexes: Normal Cervical Dilatation: 3cm Effacement: 75% Station: -1 Membranes: Intact Heart Rate: 130's Accelerations: Accelerations Present Decelerations: No Decelerations Short Term Variability: Present Fci Variability: Average (6-25) Contractions on Admission: 6-10 Minutes Apart Intensity: Mild Patel Scoring Tool (Modified) Dilation (cm): 3-4cm (2) Effacement (%): 51-79% (2) Descent/Station: -1,0 (2) Cervix Consistency: Soft (2) Cervix Position: Anterior (2) Patel Score: 14 OB - Assessment/Plan/Diagnosis Assessment Assessment: induction of labor Admission Dx 30 yo @ 40.0 Elective IOL GBS neg Admission Status: Inpatient Order (span 2 midnights) Reason for Inpatient Admission: IOL at 40 weeks Plan Plan: Induction Induction Method: MARCO YIN DO February 22, 2021 07:31
[2021-02-22] MEDS ORDERED: OXYTOCIN PRE-MIX DRIP 500 ML IV ONE (07:56)
[2021-02-22] MEDS ORDERED: D5 LR IV SOLUTION 1,000 ML IV ONE (07:56)
[2021-02-22] MEDS ORDERED: OXYTOCIN PRE-MIX DRIP 500 ML IV SCH (08:15)
[2021-02-22] MEDS ORDERED: D5 LR IV SOLUTION 1,000 ML IV SCH (08:15)
[2021-02-22 08:20] LABS: BASOPHILS % (AUTO) 0 % (0-10); EOSINOPHILS # (AUTO) 0.1 10^3/uL (0.0-0.3); EOSINOPHILS % (AUTO) 0 % (0-10); HEMATOCRIT 31 % (35-52); HEMOGLOBIN 9.9 g/dL (11.5-16.0); LYMPHOCYTES # (AUTO) 1.8 10^3/uL (1.0-4.0); LYMPHOCYTES % (AUTO) 15 % (12-44); MEAN CORPUSCULAR HEMOGLOBIN 30 pg (25-34); MEAN CORPUSCULAR HGB CONC 32 g/dL (32-36); MEAN CORPUSCULAR VOLUME 93 fL (80-99); MEAN PLATELET VOLUME 10.7 fL (9.0-12.2); MONOCYTES # (AUTO) 0.9 10^3/uL (0.0-1.0); MONOCYTES % (AUTO) 7 % (0-12); NEUTROPHILS # (AUTO) 9.2 10^3/uL (1.8-7.8); NEUTROPHILS % (AUTO) 76 % (42-75); PLATELET COUNT 203 10^3/uL (130-400); WHITE BLOOD COUNT 12.1 10^3/uL (4.3-11.0)
[2021-02-22] MEDS ORDERED: BUPIVACAINE 0.25% 30 ML (SENSORCAINE) VIAL ONE (11:35)
[2021-02-22] MEDS ORDERED: fentaNYL INJ 100 MCG/2 ML AMP ONE (11:35)
[2021-02-22] MEDS ORDERED: fentaNYL 2 mcg/ml BUPIVA 0.125 100 ML ONE (11:38)
[2021-02-22] MEDS ORDERED: LACTATED RINGERS 1,000 ML IV SCH (12:15)
[2021-02-22] MEDS ORDERED: METOCLOPRAMIDE INJ 10 MG/2 ML (REGLAN) IV PRN (12:15)
[2021-02-22] MEDS ORDERED: NALOXONE 0.4 MG/ML 1 ML (NARCAN) VIAL IV PRN ×2 (12:15)
[2021-02-22] MEDS ORDERED: diphenhydrAMINE 50 MG/ML INJ (BENADRYL) IV PRN (12:15)
[2021-02-22] MEDS ORDERED: ONDANSETRON 4 MG/2 ML (SDV) Z0FRAN IV PRN (12:15)
[2021-02-22] MEDS ORDERED: EPIDURAL (fentaNYL 2 MCG/ML BUPIVA 0.125%)100 ML BAG EPI PRN (12:15)
[2021-02-22 12:39] LABS: BILIRUBIN,URINE NEGATIVE (NEGATIVE); CLARITY,URINE CLEAR; COLOR,URINE YELLOW; GLUCOSE, URINE (UA) NEGATIVE (NEGATIVE); KETONES,URINE NEGATIVE (NEGATIVE); LEUKOCYTE ESTERASE ,URINE NEGATIVE (NEGATIVE); NITRITE,URINE NEGATIVE (NEGATIVE); PH,URINE 6.5 (5-9); PROTEIN,URINE NEGATIVE (NEGATIVE)
[2021-02-22 12:50] LABS: BACTERIA,URINE NEGATIVE /HPF
[2021-02-22] MEDS: CATHETER FLUSH 10 ML SYR IV SCH ×2 (14:33→23:46)
[2021-02-22] MEDS: OXYTOCIN PRE-MIX DRIP 500 ML IV SCH ×2 (15:46→16:15)
[2021-02-22] MEDS ORDERED: WITCH HAZEL(TUCKS) 40 EA JAR TOP PRN (16:15)
[2021-02-22] MEDS ORDERED: DIBUCAINE 1% OINTMENT 30 GM TUBE TOP PRN (16:15)
[2021-02-22] MEDS ORDERED: HYDROcodone/APAP 5 MG/325 MG (LORTAB) TAB PO PRN (16:15)
[2021-02-22] MEDS ORDERED: TETANUS,DIPTH,PERTUSS P/F (BOOSTRIX) 0.5 ML VIAL IM ONE (16:15)
[2021-02-22] MEDS ORDERED: MEASLES,MUMPS,RUBELLA 1 EA INJ SQ ONE (16:15)
[2021-02-22] MEDS ORDERED: BENZOCAINE/MENTHOL (DERMOPLAST) 56 ML CAN TP PRN (16:15)
--- NOTE | 2021-02-22 16:15 | OB Labor & Delivery Record ---
L&D History Date of Service Date of Service: February 22, 2021 History Expected Date of Delivery: February 22, 2021 Gestational Age in Weeks: 40 Hx : 7 Hx Para: 4 Complications Events: Routine care Operative Indications (Cesarea: N/A-Vaginal Delivery Intrapartal Events: None L&D Stage1 Stage One Onset of Labor - Date: February 22, 2021 Monitors and Tracing Monitor Mode: External Heart Rate: 125 Monitor Accelerations: Uniform Monitor Decelerations: Early Alf Variability: Average (6-10) Short Term Variability: Present Presentation: Vertex Vital Signs VS - Last 72 Hours, by Label 02/22/21 02/22/21 02/22/21 02/22/21 07:15 07:20 08:00 08:15 Temp 36.1 36.1 Pulse 84 84 85 84 Resp 18 18 18 18 B/P (MAP) 122/71 (88) 114/71 (85) 117/71 (86) Pulse Ox 97 97 O2 Delivery Room Air Room Air Room Air Room Air 02/22/21 02/22/21 02/22/21 02/22/21 08:30 08:45 09:00 09:15 Pulse 75 75 71 74 Resp 18 18 18 18 B/P (MAP) 116/72 (87) 122/72 (89) 121/72 (88) 112/70 (84) O2 Delivery Room Air Room Air Room Air Room Air 02/22/21 02/22/21 02/22/21 02/22/21 09:30 09:45 10:00 10:15 Pulse 71 69 69 76 Resp 18 18 18 18 B/P (MAP) 118/68 (85) 115/70 (85) 115/70 (85) 115/69 (84) O2 Delivery Room Air Room Air Room Air Room Air 02/22/21 02/22/21 02/22/21 02/22/21 10:30 10:45 11:00 11:15 Pulse 75 67 70 75 Resp 18 18 18 18 B/P (MAP) 125/82 (96) 117/75 (89) 116/76 (89) 118/75 (89) O2 Delivery Room Air Room Air Room Air Room Air 02/22/21 02/22/21 02/22/21 02/22/21 11:30 11:45 11:50 11:55 Pulse 75 82 73 Resp 18 18 18 18 B/P (MAP) 115/77 (90) 118/69 (85) 122/70 (87) Pulse Ox 100 100 O2 Delivery Room Air Room Air Room Air Room Air 02/22/21 02/22/21 02/22/21 02/22/21 12:00 12:05 12:10 12:15 Pulse 77 81 77 81 Resp 18 18 18 18 B/P (MAP) 126/71 (89) 121/72 (88) 120/66 (84) 126/68 (87) Pulse Ox 100 100 100 100 O2 Delivery Room Air Room Air Room Air Room Air 02/22/21 02/22/21 02/22/21 02/22/21 12:20 12:25 12:30 12:45 Temp 35.3 Pulse 77 69 77 Resp 18 18 18 B/P (MAP) 127/69 (88) 116/69 (85) Pulse Ox 99 100 100 O2 Delivery Room Air Room Air Room Air 02/22/21 02/22/21 02/22/21 02/22/21 13:00 13:15 13:30 13:45 Pulse 75 81 76 75 Resp 18 18 18 18 B/P (MAP) 111/70 (84) 116/71 (86) 116/71 (86) Pulse Ox 100 100 100 100 O2 Delivery Room Air Room Air Room Air Room Air 02/22/21 02/22/21 14:00 14:15 Pulse 77 67 Resp 18 18 B/P (MAP) 126/70 (88) 69/70 (70) Pulse Ox 99 100 O2 Delivery Room Air Room Air Rupture of Membranes Spontaneous Ruture of Membrane: No Amniotic Membrane Rupture Time: 0758 Amniotic Membrane Fluid Desc.: Clear Vaginal Bleeding Description: Normal Show Induction/Anesthesia Epidural Cath Placement - Time: 1154 Progress/Notes Patient admitted for elective IOL. She had AROM performed followed by pitocin augmentation to max dose of 10. SHe received an epidural and progressed to complete and + 2 station. L&D Stage2 Stage Two Stage II Date: February 22, 2021 Monitors and Tracing Monitor Mode: External Heart Rate: 125 Monitor Accelerations: Uniform Monitor Decelerations: Early Alf Variability: Average (6-10) Short Term Variability: Present Position: Right Occiput Anterior Cord Descript/Complications Cord Vessel Description: 3 Vessels Delivery Type Infant Delivery Method: Spontaneous Vaginal Anterior Shoulder: Right Episiotomy/Perineal Laceration Laceraction(s)/Extensions: Yes Episiotomy Description: Vaginal Extension/lac, 1st degree Degree (describe repair) 1st degree vaginal laceration repaired using 3-0 rapide in usual fashion. Condition of Delivery 1 minute Comment: 8 5 minute Comment: 9 Notes live female , weight pending. Condition of Infant Condition of Infant: Living Exam: No Observed Abnormalities Resuscitation Resuscitation: N/A - Spontaneous Resp L&D Stage3 Stage Three Stage III Date: February 22, 2021 Pictocin Pitocin Administration mu/min: 10 Pitocin ml/hr: 10 Pitocin Administration Comment: 30 mu wide open at delivery of placneta Placenta Delivery Placenta Delivery: Spontaneous Delivery Summary Summary Estimated blood loss (mL): 250 Attending at delivery: Marco Estrada DO Condition of Delivery Examined: Cervix Examined, Uterus Explored Post Hemorrhage: No Condition of Mother stable Condition of (s) stable MARCO ESTRADA DO February 22, 2021 4:15 pm
--- NOTE | 2021-02-22 19:10 | Discharge Inst-Women's Service ---
Discharge Inst-Women's Serv Depart Medication/Instructions New, Converted or Re-Newed RX: RX on Chart Final Diagnosis PPD 1 NVD Problems Reviewed?: Yes Consults/Follow Up Additional Follow Up: Yes Orders/Referrals Dr. Estrada in 6 weeks Activity Activity: Activity as Tolerated Driving Instructions: No Driving for 1 Week NO SMOKING: NO SMOKING Nothing Inside Vagina: No Douching, No [place], No Tampons Diet Discharge Diet: No Restrictions Symptoms to Report to : Bleeding Excessive, Pain Increased, Fever Over 101 Degrees F, Vaginal Bleeding Increase, Questions/Concerns For Any Problems or Questions: Contact Your Physician MARCO ESTRADA DO February 22, 2021 19:10
[2021-02-22] MEDS ORDERED: DIBU30OI TOP (19:12)
[2021-02-22] MEDS ORDERED: IBUP-844 PO (19:12)
[2021-02-22] MEDS ORDERED: BENZ78AE5 TP (19:12)
[2021-02-22] MEDS: IBUPROFEN 600 MG (MOTRIN) TAB PO SCH (19:12)
[2021-02-22] MEDS ORDERED: ACHD5005 PO (19:12)
[2021-02-22] MEDS ORDERED: PNV1TABL67 PO (19:12)
[2021-02-22] MEDS ORDERED: DCS100C PO (19:12)
[2021-02-22] MEDS: DOCUSATE SODIUM 100 MG (COLACE) CAP PO SCH (20:32)
[2021-02-22] MEDS ORDERED: CATHETER FLUSH 10 ML SYR IV SCH (22:00)
[2021-02-23 00:28] VITALS: BP 110/69
[2021-02-23] MEDS: IBUPROFEN 600 MG (MOTRIN) TAB PO SCH ×4 (00:28→17:48)
[2021-02-23 04:55] VITALS: BP 117/65
[2021-02-23 05:35] LABS: BASOPHILS % (AUTO) 0 % (0-10); EOSINOPHILS # (AUTO) 0.1 10^3/uL (0.0-0.3); EOSINOPHILS % (AUTO) 1 % (0-10); HEMATOCRIT 29 % (35-52); HEMOGLOBIN 9.1 g/dL (11.5-16.0); LYMPHOCYTES # (AUTO) 2.1 10^3/uL (1.0-4.0); LYMPHOCYTES % (AUTO) 17 % (12-44); MEAN CORPUSCULAR HEMOGLOBIN 30 pg (25-34); MEAN CORPUSCULAR HGB CONC 32 g/dL (32-36); MEAN CORPUSCULAR VOLUME 93 fL (80-99); MEAN PLATELET VOLUME 10.4 fL (9.0-12.2); MONOCYTES # (AUTO) 0.7 10^3/uL (0.0-1.0); MONOCYTES % (AUTO) 6 % (0-12); NEUTROPHILS # (AUTO) 9.1 10^3/uL (1.8-7.8); NEUTROPHILS % (AUTO) 75 % (42-75); PLATELET COUNT 187 10^3/uL (130-400); WHITE BLOOD COUNT 12.1 10^3/uL (4.3-11.0)
[2021-02-23] MEDS ORDERED: PRENATAL VITAMIN 1 EA TAB PO SCH (07:00)
--- NOTE | 2021-02-23 07:15 | Postpartum Progress Note ---
Note Note Day # 1 Subjective: Patient is without complaints. Ambulating, voiding. Tolerating a regular diet without nausea or vomiting. Normal lochia. Pain is well controlled with oral pain medications. Objective: Physical Exam: General - Alert and oriented, no apparent distress Abdomen - Soft, appropriately tender to palpation, non-distended, fundus firm at umbilicus Extremities - no edema, negative Jefferson's bilaterally Assessment: PPD 1 NVD Acute blood loss anemia Plan: Routine care. Encourage breast feeding. Encourage ambulation. Ferrous sulfate supplementation. Plan for discharge tomorrow Vitals - Labs Vital Signs - I&O Vital Signs Date Time Temp Pulse Resp B/P (MAP) Pulse Ox O2 Delivery O2 Flow Rate FiO2 02/23/21 04:55 36.5 67 18 117/65 (82) 98 Room Air 02/23/21 00:28 36.4 68 18 110/69 (83) 98 Room Air 02/22/21 20:30 36.3 76 18 122/58 (79) 98 Room Air 02/22/21 19:05 76 18 121/72 (88) Room Air 02/22/21 18:50 70 18 128/72 (90) Room Air 02/22/21 18:35 74 18 117/71 (86) Room Air 02/22/21 18:20 73 18 114/67 (83) Room Air 02/22/21 18:05 68 18 120/74 (89) Room Air 02/22/21 17:50 81 18 130/69 (89) Room Air 02/22/21 17:35 74 18 128/66 (86) Room Air 02/22/21 17:20 65 18 108/60 (76) Room Air 02/22/21 17:05 72 18 120/59 (79) Room Air 02/22/21 16:50 59 18 134/60 (84) Room Air 02/22/21 16:20 65 18 129/60 (83) Room Air 02/22/21 15:50 65 18 112/56 (74) Room Air 02/22/21 15:30 84 18 121/72 (88) 100 Room Air 02/22/21 15:15 35.4 63 18 126/75 (92) 100 Room Air 02/22/21 15:00 81 18 118/81 (93) 100 Room Air 02/22/21 14:45 73 18 116/71 (86) 100 Room Air 02/22/21 14:30 68 18 118/69 (85) 100 Room Air 02/22/21 14:15 77 18 126/70 (88) 100 Room Air 02/22/21 14:00 77 18 126/70 (88) 99 Room Air 02/22/21 13:45 75 18 116/71 (86) 100 Room Air 02/22/21 13:30 76 18 116/71 (86) 100 Room Air 02/22/21 13:15 81 18 100 Room Air 02/22/21 13:00 75 18 111/70 (84) 100 Room Air 02/22/21 12:45 77 18 116/69 (85) 100 Room Air 02/22/21 12:30 69 18 100 Room Air 02/22/21 12:25 35.3 02/22/21 12:20 77 18 127/69 (88) 99 Room Air 02/22/21 12:15 81 18 126/68 (87) 100 Room Air 02/22/21 12:10 77 18 120/66 (84) 100 Room Air 02/22/21 12:05 81 18 121/72 (88) 100 Room Air 02/22/21 12:00 77 18 126/71 (89) 100 Room Air 02/22/21 11:55 73 18 122/70 (87) 100 Room Air 02/22/21 11:50 82 18 118/69 (85) 100 Room Air 02/22/21 11:45 18 Room Air 02/22/21 11:30 75 18 115/77 (90) Room Air 02/22/21 11:15 75 18 118/75 (89) Room Air 02/22/21 11:00 70 18 116/76 (89) Room Air 02/22/21 10:45 67 18 117/75 (89) Room Air 02/22/21 10:30 75 18 125/82 (96) Room Air 02/22/21 10:15 76 18 115/69 (84) Room Air 02/22/21 10:00 69 18 115/70 (85) Room Air 02/22/21 09:45 69 18 115/70 (85) Room Air 02/22/21 09:30 71 18 118/68 (85) Room Air 02/22/21 09:15 74 18 112/70 (84) Room Air 02/22/21 09:00 71 18 121/72 (88) Room Air 02/22/21 08:45 75 18 122/72 (89) Room Air 02/22/21 08:30 75 18 116/72 (87) Room Air 02/22/21 08:15 84 18 117/71 (86) Room Air 02/22/21 08:00 85 18 114/71 (85) Room Air 02/22/21 07:20 36.1 84 18 122/71 (88) 97 Room Air I & O 02/23/21 07:00 Intake Total 2500 ml Balance 2500 ml Labs Laboratory Tests 02/22/21 07:50: White Blood Count 12.1H, Red Blood Count 3.35L, Hemoglobin 9.9L, Hematocrit 31L, Mean Corpuscular Volume 93, Mean Corpuscular Hemoglobin 30, Mean Corpuscular Hemoglobin Concent 32, Red Cell Distribution Width 14.1, Platelet Count 203, Mean Platelet Volume 10.7, Immature Granulocyte % (Auto) 1, Neutrophils (%) (Auto) 76H, Lymphocytes (%) (Auto) 15, Monocytes (%) (Auto) 7, Eosinophils (%) (Auto) 0, Basophils (%) (Auto) 0, Neutrophils # (Auto) 9.2H, Lymphocytes # (Auto) 1.8, Monocytes # (Auto) 0.9, Eosinophils # (Auto) 0.1, Basophils # (Auto) 0.0, Immature Granulocyte # (Auto) 0.1 02/22/21 12:30: Urine Color YELLOW, Urine Clarity CLEAR, Urine pH 6.5, Urine Specific [place] <=1.005, Urine Protein NEGATIVE, Urine Glucose (UA) NEGATIVE, Urine Ketones NEGATIVE, Urine Nitrite NEGATIVE, Urine Bilirubin NEGATIVE, Urine Urobilinogen 0.2, Urine Leukocyte Esterase NEGATIVE, Urine RBC (Auto) NEGATIVE, Urine RBC NONE, Urine WBC NONE, Urine Squamous Epithelial Cells NONE, Urine Crystals NONE, Urine Bacteria NEGATIVE, Urine Casts NONE, Urine Mucus NEGATIVE, Urine Culture Indicated NO 02/23/21 05:13: White Blood Count 12.1H, Red Blood Count 3.08L, Hemoglobin 9.1L, Hematocrit 29L, Mean Corpuscular Volume 93, Mean Corpuscular Hemoglobin 30, Mean Corpuscular Hemoglobin Concent 32, Red Cell Distribution Width 14.2, Platelet Count 187, Mean Platelet Volume 10.4, Immature Granulocyte % (Auto) 1, Neutrophils (%) (Auto) 75, Lymphocytes (%) (Auto) 17, Monocytes (%) (Auto) 6, Eosinophils (%) (Auto) 1, Basophils (%) (Auto) 0, Neutrophils # (Auto) 9.1H, Lymphocytes # (Auto) 2.1, Monocytes # (Auto) 0.7, Eosinophils # (Auto) 0.1, Basophils # (Auto) 0.0, Immature Granulocyte # (Auto) 0.1 MARCO ESTRADA DO February 23, 2021 07:15
[2021-02-23] MEDS ORDERED: FERROUS SULF 325 MG (IRON) TAB PO SCH (09:00)
[2021-02-23] MEDS: DOCUSATE SODIUM 100 MG (COLACE) CAP PO SCH (09:20)
[2021-02-23 09:22] VITALS: BP 114/66
[2021-02-23 12:45] VITALS: BP 99/59
--- NOTE | 2021-02-23 15:15 | Anesthesia-Regional Post-Op ---
Regional Patient Condition Mental Status: Alert, Oriented x3 Circulation: Same as Pre-Op Headache: Absent Sensation: Full Recovery Motor Block: Absent Post Op Complications Complications None Follow Up Care/Instructions Patient Instructions None needed. Anesthesia/Patient Condition Patient is doing well, no complaints, stable vital signs, no apparent adverse anesthesia problems. CECILY WILLETT DO February 23, 2021 15:14
[2021-02-23 17:09] VITALS: BP 116/71
== END 2021-02-23 18:15 | disposition home or self-care (01) | DRG 806 ==
LOC: LDRP 06:40
PROVIDERS: ADMIT Obstetrics & Gynecology; ATTEND Obstetrics & Gynecology
PROC: 10E0XZZ Delivery of Products of Conception, External Approach (ICD-10-PCS; principal; 2021-02-22)
PROC: 10907ZC Drainage of Amniotic Fluid, Therapeutic from Products of Conception, Via Natural or Artificial Opening (ICD-10-PCS; 2021-02-22)
PROC: 0HQ9XZZ Repair Perineum Skin, External Approach (ICD-10-PCS; 2021-02-22)
DX: O48.0 Post-term pregnancy (principal); D62 Acute posthemorrhagic anemia; Z37.0 Single live birth; Z3A.40 40 weeks gestation of pregnancy; Z88.2 Allergy status to sulfonamides; O70.0 First degree perineal laceration during delivery; O90.81 Anemia of the puerperium
CPT/HCPCS: 36415; 81000; 85025

== ENCOUNTER 2022-12-16 15:21 | Emergency (ER) | payer MEDICAID ==
[~2022-12-16 15:21] MED LIST changes: +ACHD5005 PO; +BENZ78AE5 TP; +DIBU30OI TOP; +DOCU-239 PO; -FLUC200T5; +FLUC200T9; +IBUP-844 PO; +PNV1TABL67 PO
--- NOTE | 2022-12-16 15:38 | ED Cardiac General ---
History of Present Illness General Chief Complaint: Cardiac/General Problems Stated Complaint: TIGHTNESS IN CHEST, SOB, HEART PALP W PRESSURE Nursing Triage Note: PT REPORTS SHE FEEL LIKE SHE WAS GOING TO PASS OUT THIS AM WHEN SHE STOOD UP FROM BED. SHE SINCE THEN HAS HAD EPISODES TODAY OF FEELING HER HEART FLUTTER AND CAN FEEL IT IN HER THROAT AND STOMACH. PT REPORTS SHE HAS GENERALIZED ANXIETY. Source: patient Exam Limitations: no limitations History of Present Illness Date Seen by Provider: Dec 16, 2022 Time Seen by Provider: 15:26 Initial Comments 32-year-old female with anxiety and depression presents to the emergency department today for feeling as though her heart is "quivering." She states she can feel it in her throat into her stomach. She got up this morning and "felt like I was going to pass out." For the rest of that if she is felt the quivering. She has had similar symptoms like this in the past and has had several work-ups. She states she has taken new herbal supplements to try to help her anxiety and depression recently. One of them is L-thionine. She denies any fevers chills. Symptoms are improving at present. She does not drink much caffeine. No nausea or vomiting diaphoresis. All other systems reviewed and negative except documented per HPI. Voice recognition software was used to help create this chart ASA po SOAKER MEAT: No (REPORTS FLUTTER) Allergies and Home Medications Allergies Coded Allergies: Sulfa (Sulfonamide Antibiotics) (Unverified Adverse Reaction, Unknown, 05/03/20) Patient Home Medication List Home Medication List Reviewed: Yes Benzocaine/Menthol (Dermoplast Pain Relieving Yaurel) 78 Gm Aerosol, 56 EA TP UD PRN for PAIN- SEE INSTRUCTIONS Prescribed by: MARCO ESTRADA on 02/22/211911 Dibucaine (Dibucaine) 30 Gm Oint, 0 GM TOP UD PRN for PAIN- SEE INSTRUCTIONS Prescribed by: MARCO ESTRADA on 02/22/211911 Docusate Sodium (Dok) 100 Mg Capsule, 100 MG PO BID PRN for CONSTIPATION-1ST LINE Prescribed by: MARCO ESTRADA on 02/22/211911 Hydrocodone Bit/Acetaminophen (HYDROcodone/APAP 5 MG/325 MG TAB) 1 Tab Tab, 1 EA PO Q4H PRN for PAIN-MODERATE (5-7) Prescribed by: MARCO ESTRADA on 02/22/211911 Ibuprofen (Ibu) 600 Mg Tablet, 600 MG PO Q6HR PRN for CONSTIPATION-1ST LINE Prescribed by: MARCO ESTRADA on 02/22/211911 Pnv with Ca,No.72/Iron/FA (Pnv Plus Multivit Tab) 1 Each Tablet, 1 EA PO DAILY@0700 Prescribed by: MARCO ESTRADA on 02/22/211911 Review of Systems Review of Systems Constitutional: no symptoms reported, see HPI Past Qhvnyiy-Mvswiq-Zsdzzo Hx Patient Social History Tobacco Use?: No Use of E-Cig and/or Vaping dev: No Substance use?: No Alcohol Use?: No Pt feels they are or have been: No Seasonal Allergies Seasonal Allergies: No Past Medical History Surgeries: No Respiratory: No Cardiac: No Neurological: No Last Menstrual Period: Dec 02, 2022 Reproductive Disorders: No Female Reproductive Disorders: Denies Sexually Transmitted Disease: No Genitourinary: No Gastrointestinal: No Musculoskeletal: No Endocrine: Yes (Nodule on thyroid) HEENT: No Cancer: No Psychosocial: No Integumentary: No Blood Disorders: No Family Medical History Reviewed Nursing Family Hx No Pertinent Family Hx Physical Exam Vital Signs Vital Signs - First Documented 12/16/22 15:24 Temp 36.4 Pulse 75 Resp 16 B/P (MAP) 128/86 (100) Pulse Ox 99 O2 Delivery Room Air Capillary Refill : Less Than 3 Seconds Height, Weight, BMI Height: 5'11.00" Weight: 170lbs. oz. 77.313118fh; 29.95 BMI Method:Stated General Appearance: No Apparent Distress, WD/WN HEENT: Normal ENT Inspection, Pharynx Normal Neck: Full Range of Motion, Normal Inspection, Non Tender, Supple Respiratory: Chest Non Tender, Lungs Clear, Normal Breath Sounds, No Accessory Muscle Use, No Respiratory Distress Cardiovascular: Regular Rate, Rhythm, No Edema, No Gallop, No JVD, No Murmur, Normal Peripheral Pulses Gastrointestinal: Normal Bowel Sounds, No Organomegaly, No Pulsatile Mass, Non Tender, Soft Extremity: Normal Capillary Refill, Normal Inspection, Normal Range of Motion, Non Tender, No Calf Tenderness Neurologic/Psychiatric: Alert, Oriented x3, No Motor/Sensory Deficits Skin: Normal Color, Warm/Dry Progress/Results/Core Measures Results/Orders My Orders Orders - SAMMYYULISA Deleon DO Ekg Tracing (12/16/22 15:30) Vital Signs/I&O 12/16/22 15:24 Temp 36.4 Pulse 75 Resp 16 B/P (MAP) 128/86 (100) Pulse Ox 99 O2 Delivery Room Air Blood Pressure Mean: 100 Comment Sinus rhythm with a rate of 72 bpm. Normal intervals. Normal axis. No ST or T wave abnormality. No ectopy. No STEMI. Departure Communication (Admissions) Patient is hemodynamically stable, asymptomatic at the time of arrival. Symptoms have improving throughout the day. This is likely from the herbal supplements that she is taking as this is a known effect of them. Her EKG shows a sinus rhythm. She has been worked up for this in the past and I do not think there is any indication for lab work at this time. She has no clinical evidence of anemia, electrolyte abnormality. She be discharged in stable condition recommended to stop L-theanine Impression Primary Impression: Palpitations Disposition: 01 HOME, SELF-CARE Condition: Stable Departure-Patient Inst. Referrals: [facility]/ (PCP) Primary Care Physician [place] LINDSEY APRN (Family) Primary Care Physician Patient Instructions: Palpitations Add. Discharge Instructions: Stop taking L-theanine. See if this helps. If not stop taking the other herbal supplement as well. Minimize caffeine intake. Return to the emergency department for any severe concerns. All discharge instructions reviewed with patient and/or family. Voiced understanding. YULISA CHRISTIANSON DO Dec 16, 2022 15:38
[2022-12-16 15:42] VITALS: BP 128/86
== END 2022-12-16 15:42 | disposition home or self-care (01) ==
LOC: EDUNIT# 15:21 → ER FS 15:23
DX: R00.2 Palpitations (principal); Z28.310 Unvaccinated for COVID-19
CPT/HCPCS: 93005

== ENCOUNTER 2023-03-27 09:06 | Emergency (ER) | payer MEDICAID ==
[~2023-03-27] VITALS: Ht 180.3 cm; Wt 87.1 kg
[2023-03-27 09:09] VITALS: BP 113/82
[2023-03-27 09:21] LABS: BILIRUBIN,URINE NEGATIVE (NEGATIVE); CLARITY,URINE CLEAR; COLOR,URINE YELLOW; GLUCOSE, URINE (UA) NEGATIVE (NEGATIVE); KETONES,URINE NEGATIVE (NEGATIVE); LEUKOCYTE ESTERASE ,URINE NEGATIVE (NEGATIVE); NITRITE,URINE NEGATIVE (NEGATIVE); PROTEIN,URINE NEGATIVE (NEGATIVE)
[2023-03-27 09:25] LABS: BACTERIA,URINE FEW /HPF
--- NOTE | 2023-03-27 09:26 | ED Abdominal Pain ---
General Chief Complaint: Abdominal/GI Problems Stated Complaint: SUPRAPUBIC PAIN Source of Information: Patient Exam Limitations: No Limitations History of Present Illness Date Seen by Provider: Mar 27, 2023 Time Seen by Provider: 09:07 Initial Comments 32yoF no pertinent past medical history coming in due to left lower quadrant pain. Positive test a couple weeks ago, developed left lower quadrant pain last night which is dull, constant. Has some nausea but no vomiting. Went to the clinic this morning and she was referred to the ER. Had a normal bowel movement last night which did not help. Food does not seem to change the pain. Has not taken anything for it as of yet in terms of medicat ions. Denies any fever, vaginal bleeding, dysuria, vaginal discharge, rash, chest pain, shortness of breath, or any other concerns. Allergies and Home Medications Allergies Coded Allergies: Sulfa (Sulfonamide Antibiotics) (Unverified Adverse Reaction, Unknown, 05/03/20) Patient Home Medication List Home Medication List Reviewed: Yes Benzocaine/Menthol (Dermoplast Pain Relieving [place]del) 78 Gm Aerosol, 56 EA TP UD PRN for PAIN- SEE INSTRUCTIONS Prescribed by: MARCO ESTRADA on 02/22/211911 Dibucaine (Dibucaine) 30 Gm Oint, 0 GM TOP UD PRN for PAIN- SEE INSTRUCTIONS Prescribed by: MARCO ESTRADA on 02/22/211911 Docusate Sodium (Dok) 100 Mg Capsule, 100 MG PO BID PRN for CONSTIPATION-1ST LINE Prescribed by: MARCO ESTRADA on 02/22/211911 Hydrocodone Bit/Acetaminophen (HYDROcodone/APAP 5 MG/325 MG TAB) 1 Tab Tab, 1 EA PO Q4H PRN for PAIN-MODERATE (5-7) Prescribed by: MARCO ESTRADA on 02/22/211911 Ibuprofen (Ibu) 600 Mg Tablet, 600 MG PO Q6HR PRN for CONSTIPATION-1ST LINE Prescribed by: MARCO ESTRADA on 02/22/211911 Pnv with Ca,No.72/Iron/FA (Pnv Plus Multivit Tab) 1 Each Tablet, 1 EA PO DAILY@0700 Prescribed by: MARCO ESTRADA on 02/22/211911 Review of Systems Review of Systems Constitutional: No fever EENTM: No Symptoms Reported Respiratory: No Symptoms Reported Cardiovascular: No Symptoms Reported Gastrointestinal: See HPI Genitourinary: No Symptoms Reported Musculoskeletal: no symptoms reported Skin: no symptoms reported Psychiatric/Neurological: No Symptoms Reported Past Ydqktge-Hmxrhn-Cmbkmi Hx Patient Social History Tobacco Use?: No Substance use?: No Alcohol Use?: No Seasonal Allergies Seasonal Allergies: No Past Medical History Surgery/Hospitalization HX: D&C Surgeries: Yes Respiratory: No Cardiac: No Neurological: No Reproductive Disorders: No Female Reproductive Disorders: Denies Sexually Transmitted Disease: No Genitourinary: No Gastrointestinal: No Musculoskeletal: No Endocrine: Yes (Nodule on thyroid) HEENT: No Cancer: No Psychosocial: No Integumentary: No Blood Disorders: No Family Medical History No Pertinent Family Hx Physical Exam Vital Signs Vital Signs - First Documented 03/27/23 09:09 Temp 37.4 Pulse 85 Resp 14 B/P (MAP) 113/82 (92) Pulse Ox 100 O2 Delivery Room Air Capillary Refill : Height/Weight/BMI Height: 5'11.00" Weight: 170lbs. oz. 77.129086ol; 29.95 BMI Method:Stated General Appearance: WD/WN, no apparent distress HEENT: PERRL/EOMI, normal ENT inspection, pharynx normal Neck: non-tender, full range of motion, supple, normal inspection Respiratory: chest non-tender, lungs clear, normal breath sounds, no respiratory distress, no accessory muscle use Cardiovascular: regular rate, rhythm, no edema, no murmur Gastrointestinal: normal bowel sounds, soft; No distended, No guarding, No rebound; tenderness (LLQ) Extremities: normal range of motion, non-tender, normal inspection, no pedal edema, no calf tenderness, normal capillary refill Back: normal inspection, no CVA tenderness Neurologic/Psychiatric: no motor/sensory deficits, alert, normal mood/affect Skin: normal color, warm/dry Progress/Results/Core Measures Results/Orders Lab Results Laboratory Tests Test 03/27/23 09:12 03/27/23 09:25 Range/Units Urine Color YELLOW Urine Clarity CLEAR Urine pH 6.0 5-9 Urine Specific Wayne >=1.030 1.016-1.022 Urine Protein NEGATIVE NEGATIVE Urine Glucose (UA) NEGATIVE NEGATIVE Urine Ketones NEGATIVE NEGATIVE Urine Nitrite NEGATIVE NEGATIVE Urine Bilirubin NEGATIVE NEGATIVE Urine Urobilinogen 1.0 < = 1.0 MG/DL Urine Leukocyte Esterase NEGATIVE NEGATIVE Urine RBC (Auto) NEGATIVE NEGATIVE Urine RBC NONE /HPF Urine WBC NONE /HPF Urine Squamous Epithelial Cells 5-10 /HPF Urine Crystals NONE /LPF Urine Bacteria FEW H /HPF Urine Casts NONE /LPF Urine Mucus MODERATE H /LPF Urine Culture Indicated NO White Blood Count 6.0 4.3-11.0 10^3/uL Red Blood Count 4.48 3.80-5.11 10^6/uL Hemoglobin 14.0 11.5-16.0 g/dL Hematocrit 42 35-52 % Mean Corpuscular Volume 93 80-99 fL Mean Corpuscular Hemoglobin 31 25-34 pg Mean Corpuscular Hemoglobin Concent 34 32-36 g/dL Red Cell Distribution Width 13.2 10.0-14.5 % Platelet Count 254 130-400 10^3/uL Mean Platelet Volume 9.6 9.0-12.2 fL Immature Granulocyte % (Auto) 0 % Neutrophils (%) (Auto) 66 42-75 % Lymphocytes (%) (Auto) 27 12-44 % Monocytes (%) (Auto) 5 0-12 % Eosinophils (%) (Auto) 1 0-10 % Basophils (%) (Auto) 1 0-10 % Neutrophils # (Auto) 4.0 1.8-7.8 10^3/uL Lymphocytes # (Auto) 1.6 1.0-4.0 10^3/uL Monocytes # (Auto) 0.3 0.0-1.0 10^3/uL Eosinophils # (Auto) 0.1 0.0-0.3 10^3/uL Basophils # (Auto) 0.0 0.0-0.1 10^3/uL Immature Granulocyte # (Auto) 0.0 0.0-0.1 10^3/uL Sodium Level 138 135-145 MMOL/L Potassium Level 3.7 3.6-5.0 MMOL/L Chloride Level 105 98-107 MMOL/L Carbon Dioxide Level 22 21-32 MMOL/L Anion Gap 11 5-14 MMOL/L Blood Urea Nitrogen 9 7-18 MG/DL Creatinine 0.66 0.60-1.30 MG/DL Estimat Glomerular Filtration Rate 119 BUN/Creatinine Ratio 14 Glucose Level 120 H 70-105 MG/DL Calcium Level 9.3 8.5-10.1 MG/DL Corrected Calcium 9.0 8.5-10.1 MG/DL Total Bilirubin 0.5 0.1-1.0 MG/DL Aspartate Amino Transf (AST/SGOT) 16 5-34 U/L Alanine Aminotransferase (ALT/SGPT) 14 0-55 U/L Alkaline Phosphatase 92 40-136 U/L Total Protein 6.9 6.4-8.2 GM/DL Albumin 4.4 3.2-4.5 GM/DL Lipase 23 8-78 U/L Human Chorionic Gonadotropin, Quant 694 H <5 MIU/ML My Orders Orders - JOSEF MARK MD Urine Bedside (03/27/23 09:14) Ua Culture If Indicated (03/27/23 09:14) Cbc With Automated Diff (03/27/23 09:22) Comprehensive Metabolic Panel (03/27/23 09:22) Hcg,Quantitative (03/27/23 09:22) Lipase (03/27/23 09:22) Ondansetron Injection (Zofran Injectio (03/27/23 09:30) Ed Iv/Invasive Line Start (03/27/23 09:40) Us Ob<14 Wks Sngle W/Transvag (03/27/23 09:22) Medications Given in ED Current Medications Medications Dose Ordered Sig/Gertrudis Route Start Time Stop Time Status Last Admin Dose Admin Ondansetron HCl 4 mg ONCE ONCE IVP 03/27/23 09:30 03/27/23 09:31 DC 03/27/23 09:35 4 MG Vital Signs/I&O 03/27/23 09:09 Temp 37.4 Pulse 85 Resp 14 B/P (MAP) 113/82 (92) Pulse Ox 100 O2 Delivery Room Air Progress Progress Note : Progress Note 32-year-old female presenting due to left lower quadrant pain in the setting of known . ABCs were intact and vitals were stable on presentation. Physical exam with mild left lower quadrant tenderness but no signs of peritonitis. Differential includes ectopic versus ovarian cyst rupture versus ovarian torsion versus some other etiology. An IV was placed and basic labs were obtained and were significant for a hCG quant just above 600, normal creatinine, normal LFTs, normal white blood cell count, urinalysis with some bacteria but no evidence of infection. Ultrasound was obtained showing an ovarian cyst on the left with a little bit of fluid, possible there was a ruptured cyst recently causing the pain. No signs of ovarian torsion. The is very early, but there are signs of early within the uterus. No signs of ectopic on ultrasound. I discussed with the patient that she needs repeat ultrasound done to confirm this. I will send a prescription for Macrobid for the asymptomatic bacteria during as well as nausea medicines. I believe she is stable for discharge with outpatient follow-up. She was sent home with strict return precautions. Diagnostic Imaging Diagonstic Imaging: Ultrasound Departure Impression Primary Impression: LLQ abdominal pain Additional Impressions: Qualified Codes: Z3A.01 - Less than 8 weeks gestation of Ovarian cyst Qualified Codes: N83.202 - Unspecified ovarian cyst, left side Asymptomatic bacteriuria during Disposition: HOME, SELF-CARE Condition: Stable Departure-Patient Inst. Decision time for Depature: 10:40 Referrals: MELISSA BROCK MD (PCP) Primary Care Physician Patient Instructions: Ovarian Cyst ED Add. Discharge Instructions: There does appear to be a developing in your uterus which is where it is supposed to be, however it was still too early to really tell much about it. You did have an ovarian cyst on the left side, it is possible you have 1 that ruptured and that was causing the pain. Take Tylenol as needed for pain. Nausea medicines were sent to your pharmacy. You also had some bacteria in your urine, it is recommended this is treated during , so an antibiotic was sent to your pharmacy which is safe during . Scripts Doxylamine/Pyridoxine HCl (Shavon Dr 10-10 mg Tablet) 10 Mg-10 Mg Tablet.dr 1 EACH PO DAILY for 30 Days, #30 TAB Prov: JOSEF MARK MD 03/27/23 Nitrofurantoin Monohyd/M-Cryst (Macrobid 100 mg Capsule) 100 Mg Capsule 1 TAB PO BID for 5 Days, #10 CAP Prov: JOSEF MARK MD 03/27/23 Work/School Note: Work Release Form Date Seen in the Emergency Department: Mar 27, 2023 Return to Work: Mar 28, 2023 Restrictions: No Restrictions JOSEF MARK MD Mar 27, 2023 09:26
[2023-03-27] MEDS ORDERED: ONDANSETRON 4 MG/2 ML (SDV) Z0FRAN IVP ONE (09:30)
[2023-03-27 09:37] LABS: BASOPHILS % (AUTO) 1 % (0-10); EOSINOPHILS # (AUTO) 0.1 10^3/uL (0.0-0.3); EOSINOPHILS % (AUTO) 1 % (0-10); HEMATOCRIT 42 % (35-52); LYMPHOCYTES # (AUTO) 1.6 10^3/uL (1.0-4.0); LYMPHOCYTES % (AUTO) 27 % (12-44); MEAN CORPUSCULAR HEMOGLOBIN 31 pg (25-34); MEAN CORPUSCULAR HGB CONC 34 g/dL (32-36); MEAN CORPUSCULAR VOLUME 93 fL (80-99); MEAN PLATELET VOLUME 9.6 fL (9.0-12.2); MONOCYTES # (AUTO) 0.3 10^3/uL (0.0-1.0); MONOCYTES % (AUTO) 5 % (0-12); NEUTROPHILS % (AUTO) 66 % (42-75); PLATELET COUNT 254 10^3/uL (130-400)
[2023-03-27 10:08] LABS: ALBUMIN 4.4 GM/DL (3.2-4.5); BILIRUBIN,TOTAL 0.5 MG/DL (0.1-1.0); CALCIUM 9.3 MG/DL (8.5-10.1); CREATININE SERUM 0.66 MG/DL (0.60-1.30); POTASSIUM 3.7 MMOL/L (3.6-5.0); TOTAL PROTEIN 6.9 GM/DL (6.4-8.2)
[2023-03-27] MEDS ORDERED: DOXY1TAB3 PO (10:40)
[2023-03-27] MEDS ORDERED: NITR-65 PO (10:40)
--- NOTE | 2023-03-27 11:01 | Diagnostic Imaging Report ---
INDICATION: Left lower quadrant pain. FINDINGS: The uterus measures 8.9 x 6.3 x 6.9 cm. Endometrium is approximately 15 mm in thickness. There is a cystic collection in the endometrium measuring approximately 15 x 6 mm. This could potentially represent a gestational sac. However, no definite yolk sac or pole is identified within this collection. Adjacent to this is a small cystic structure measuring 2 mm. Right ovary measures 2.5 x 1.5 x 2.0 cm and the left ovary measures 4.5 x 2.3 x 3.0 cm. Left ovary does contain approximately 2.1 cm cyst. There is some free fluid adjacent to left ovary. Both ovaries show blood flow. IMPRESSION: 1. There is a cystic collection in the endometrium. This could represent a very early gestational sac. This is slightly irregular in shape. No definite yolk sac or pole is seen at this time. A follow-up ultrasound or correlation with serial beta-hCG levels would be recommended to evaluate for viability. 2. 2.1 cm left ovarian cyst. Dictated by: Dictated on workstation # [id number]
== END 2023-03-27 10:44 | disposition home or self-care (01) ==
LOC: EDUNIT# 09:06 → ER FS 09:08
DX: O34.81 Maternal care for other abnormalities of pelvic organs, first trimester (principal); N83.202 Unspecified ovarian cyst, left side; O99.891 Other specified diseases and conditions complicating pregnancy; R82.71 Bacteriuria; Z88.2 Allergy status to sulfonamides; Z3A.00 Weeks of gestation of pregnancy not specified; Z28.310 Unvaccinated for COVID-19
CPT/HCPCS: 36415; 76801; 76817; 80053; 81000; 83690; 84702; 84703; 85025

== ENCOUNTER 2023-04-04 07:36 | Emergency (ER) | payer MEDICAID ==
[~2023-04-04] VITALS: Ht 182.9 cm; Wt 84.0 kg
[~2023-04-04 07:36] MED LIST changes: +DOXY1TAB3 PO; +NITR-65 PO
[2023-04-04 07:46] LABS: BILIRUBIN,URINE NEGATIVE (NEGATIVE); CLARITY,URINE CLEAR; COLOR,URINE YELLOW; GLUCOSE, URINE (UA) NEGATIVE (NEGATIVE); KETONES,URINE NEGATIVE (NEGATIVE); LEUKOCYTE ESTERASE ,URINE NEGATIVE (NEGATIVE); NITRITE,URINE NEGATIVE (NEGATIVE); PH,URINE 6.5 (5-9); PROTEIN,URINE NEGATIVE (NEGATIVE)
[2023-04-04] MEDS ORDERED: NS IV 1000 ML 1,000 ML IV STA (07:49)
[2023-04-04 07:52] LABS: BACTERIA,URINE MODERATE /HPF
[2023-04-04 07:53] LABS: BASOPHILS % (AUTO) 0 % (0-10); EOSINOPHILS % (AUTO) 0 % (0-10); HEMATOCRIT 41 % (35-52); HEMOGLOBIN 13.9 g/dL (11.5-16.0); LYMPHOCYTES # (AUTO) 1.7 10^3/uL (1.0-4.0); LYMPHOCYTES % (AUTO) 23 % (12-44); MEAN CORPUSCULAR HEMOGLOBIN 31 pg (25-34); MEAN CORPUSCULAR HGB CONC 34 g/dL (32-36); MEAN CORPUSCULAR VOLUME 92 fL (80-99); MEAN PLATELET VOLUME 9.5 fL (9.0-12.2); MONOCYTES # (AUTO) 0.5 10^3/uL (0.0-1.0); MONOCYTES % (AUTO) 6 % (0-12); NEUTROPHILS # (AUTO) 5.2 10^3/uL (1.8-7.8); NEUTROPHILS % (AUTO) 70 % (42-75); PLATELET COUNT 264 10^3/uL (130-400); WHITE BLOOD COUNT 7.4 10^3/uL (4.3-11.0)
--- NOTE | 2023-04-04 08:04 | ED Syncope ---
General Chief Complaint: Dizziness/Syncope Stated Complaint: SYNCOPAL EPISODE, TACHY Source of Information: Patient History of Present Illness Date Seen by Provider: Apr 04, 2023 Time Seen by Provider: 07:40 Initial Comments 32 yo female presenting by POV to ED with complaints of not feeling well since last night. She woke up at 4 am and had to use the bathroom and then when she went back to bed she felt like her heart was racing when she laid down. she stood up and passed out for a few seconds. She denies any injury. she states she was in her daughters' room and that they did not wake up when she fainted. She also reports she is and thinks she might be miscarrying as she had LMP in mid February and then started spotting and have menstrual cramping yesterday. Since she still felt bad she thought she might be dehydrated and tried drinking extra fluids and drank some juice but felt that made her heart go faster. She feels her mouth is dry. She was not sure what was making her feel so bad so she came to the ED this am. Timing/Prior Episodes: No Prior History Symptoms Prior to Episode: Lightheadedness, Nausea, Rapid Heart Rate Precipitating Factors: Emotional Stress Loss of Consciousness: Brief (Seconds) Current Symptoms: No Blurred Vision, No Chest Pain, No Diaphoresis, No Dizziness, No Headache, No Injury, No Lightheadedness, No Loss of Bladder Control, No Loss of Bowel Control, No Motionless, No Nausea, No Pale, No Shallow/Rapid Breathing, No Weak/Absent Pulse; Weakness Allergies and Home Medications Allergies Coded Allergies: Sulfa (Sulfonamide Antibiotics) (Unverified Adverse Reaction, Unknown, 05/03/20) Patient Home Medication List Home Medication List Reviewed: Yes Pnv with Ca,No.72/Iron/FA (Pnv Plus Multivit Tab) 1 Each Tablet, 1 EA PO DAILY@0700 Prescribed by: MARCO ESTRADA on 02/22/211911 Discontinued Medications Benzocaine/Menthol (Dermoplast Pain Relieving Isabela) 78 Gm Aerosol, 56 EA TP UD PRN for PAIN- SEE INSTRUCTIONS Prescribed by: MARCO ESTRADA on 02/22/211911 Last Action: Discontinued Dibucaine (Dibucaine) 30 Gm Oint, 0 GM TOP UD PRN for PAIN- SEE INSTRUCTIONS Prescribed by: MARCO ESTRADA on 02/22/211911 Last Action: Discontinued Docusate Sodium (Dok) 100 Mg Capsule, 100 MG PO BID PRN for CONSTIPATION-1ST LINE Prescribed by: MARCO ESTRADA on 02/22/211911 Last Action: Discontinued Doxylamine/Pyridoxine HCl (Diclegis Dr 10-10 mg Tablet) 10 Mg-10 Mg Tablet.dr, 1 EACH PO DAILY Prescribed by: JOSEF MARK on 03/27/23 1040 Last Action: Discontinued Hydrocodone Bit/Acetaminophen (HYDROcodone/APAP 5 MG/325 MG TAB) 1 Tab Tab, 1 EA PO Q4H PRN for PAIN-MODERATE (5-7) Prescribed by: MARCO ESTRADA on 02/22/211911 Last Action: Discontinued Ibuprofen (Ibu) 600 Mg Tablet, 600 MG PO Q6HR PRN for CONSTIPATION-1ST LINE Prescribed by: MARCO ESTRADA on 02/22/211911 Last Action: Discontinued Nitrofurantoin Monohyd/M-Cryst (Macrobid 100 mg Capsule) 100 Mg Capsule, 1 TAB P O BID Prescribed by: JOSEF MARK on 03/27/23 1040 Last Action: Discontinued Review of Systems Constitutional: No chills, No fever; weakness EENTM: no symptoms reported Respiratory: no symptoms reported Cardiovascular: see HPI Gastrointestinal: see HPI Genitourinary: No dysuria : Yes Musculoskeletal: no symptoms reported Skin: No rash Psychiatric/Neurological: See HPI; Denies Headache Past Rcnryrj-Ulfmiz-Twvkki Hx Patient Social History Tobacco Use?: No Use of E-Cig and/or Vaping dev: No Substance use?: No Alcohol Use?: No Seasonal Allergies Seasonal Allergies: No Past Medical History Surgery/Hospitalization HX: D&C Surgeries: Yes Respiratory: No Cardiac: No Neurological: No Reproductive Disorders: No Female Reproductive Disorders: Denies Sexually Transmitted Disease: No Genitourinary: No Gastrointestinal: No Musculoskeletal: No Endocrine: Yes (Nodule on thyroid) HEENT: No Cancer: No Psychosocial: No Integumentary: No Blood Disorders: No Family Medical History No Pertinent Family Hx Physical Exam Vital Signs Vital Signs - First Documented 04/04/23 07:45 Temp 36.3 Pulse 85 Resp 18 B/P (MAP) 137/95 (109) Pulse Ox 96 O2 Delivery Room Air Capillary Refill : Height, Weight, BMI Height: 5'11.00" Weight: 170lbs. oz. 77.026477st; 26.00 BMI Method:Stated General Appearance: No Apparent Distress, Other (anxious) HEENT: PERRL/EOMI, Pharynx Normal; No Moist Mucous Membranes (slightly dry mucous membranes) Neck: Full Range of Motion, Normal Inspection, Non Tender, Supple Cardiovascular: Regular Rate, Rhythm, Normal Peripheral Pulses Respiratory: Chest Non Tender, Lungs Clear, Normal Breath Sounds, No Accessory Muscle Use, No Respiratory Distress Gastrointestinal: Normal Bowel Sounds, No Pulsatile Mass, Non Tender, Soft Extremities: Normal Capillary Refill, Normal Inspection, No Pedal Edema Neurologic/Psychiatric: Alert, Oriented x3, chief controller station II-XII Norm as Tested Cranial Nerves: Normal Hearing, Normal Speech, PERRL Coordination/Gait: Normal Gait Motor/Sensory: No Motor Deficit, No Sensory Deficit Skin: Normal Color, Warm/Dry Progress/Results/Core Measures Results/Orders Lab Results Laboratory Tests Test 04/04/23 07:45 Range/Units White Blood Count 7.4 4.3-11.0 10^3/uL Red Blood Count 4.46 3.80-5.11 10^6/uL Hemoglobin 13.9 11.5-16.0 g/dL Hematocrit 41 35-52 % Mean Corpuscular Volume 92 80-99 fL Mean Corpuscular Hemoglobin 31 25-34 pg Mean Corpuscular Hemoglobin Concent 34 32-36 g/dL Red Cell Distribution Width 12.9 10.0-14.5 % Platelet Count 264 130-400 10^3/uL Mean Platelet Volume 9.5 9.0-12.2 fL Immature Granulocyte % (Auto) 0 % Neutrophils (%) (Auto) 70 42-75 % Lymphocytes (%) (Auto) 23 12-44 % Monocytes (%) (Auto) 6 0-12 % Eosinophils (%) (Auto) 0 0-10 % Basophils (%) (Auto) 0 0-10 % Neutrophils # (Auto) 5.2 1.8-7.8 10^3/uL Lymphocytes # (Auto) 1.7 1.0-4.0 10^3/uL Monocytes # (Auto) 0.5 0.0-1.0 10^3/uL Eosinophils # (Auto) 0.0 0.0-0.3 10^3/uL Basophils # (Auto) 0.0 0.0-0.1 10^3/uL Immature Granulocyte # (Auto) 0.0 0.0-0.1 10^3/uL Prothrombin Time 13.9 12.2-14.7 SEC INR Comment 1.0 0.8-1.4 Activated Partial Thromboplast Time 28 24-35 SEC Urine Color YELLOW Urine Clarity CLEAR Urine pH 6.5 5-9 Urine Specific [place] 1.010 L 1.016-1.022 Urine Protein NEGATIVE NEGATIVE Urine Glucose (UA) NEGATIVE NEGATIVE Urine Ketones NEGATIVE NEGATIVE Urine Nitrite NEGATIVE NEGATIVE Urine Bilirubin NEGATIVE NEGATIVE Urine Urobilinogen 0.2 < = 1.0 MG/DL Urine Leukocyte Esterase NEGATIVE NEGATIVE Urine RBC (Auto) TRACE-I H NEGATIVE Urine RBC 2-5 H /HPF Urine WBC 5-10 H /HPF Urine Squamous Epithelial Cells 10-25 H /HPF Urine Crystals NONE /LPF Urine Bacteria MODERATE H /HPF Urine Casts NONE /LPF Urine Mucus NEGATIVE /LPF Urine Culture Indicated YES Sodium Level 142 135-145 MMOL/L Potassium Level 3.6 3.6-5.0 MMOL/L Chloride Level 108 H 98-107 MMOL/L Carbon Dioxide Level 22 21-32 MMOL/L Anion Gap 12 5-14 MMOL/L Blood Urea Nitrogen 7 7-18 MG/DL Creatinine 0.61 0.60-1.30 MG/DL Estimat Glomerular Filtration Rate 121 BUN/Creatinine Ratio 11 Glucose Level 105 70-105 MG/DL Calcium Level 9.3 8.5-10.1 MG/DL Corrected Calcium 9.0 8.5-10.1 MG/DL Magnesium Level 2.0 1.6-2.4 MG/DL Total Bilirubin 0.4 0.1-1.0 MG/DL Aspartate Amino Transf (AST/SGOT) 15 5-34 U/L Alanine Aminotransferase (ALT/SGPT) 15 0-55 U/L Alkaline Phosphatase 98 40-136 U/L Troponin I < 0.30 <0.30 NG/ML Pro-B-Type Natriuretic Peptide < 36.0 <125.0 PG/ML Total Protein 7.1 6.4-8.2 GM/DL Albumin 4.4 3.2-4.5 GM/DL Lipase 24 8-78 U/L Human Chorionic Gonadotropin, Quant 99124 H <5 MIU/ML My Orders Orders - ENYART,SHERRY E MD Ua Culture If Indicated (04/04/23 07:41) Urine Bedside (04/04/23 07:41) Ekg Tracing (04/04/23 07:41) Cbc With Automated Diff (04/04/23 07:48) Magnesium (04/04/23 07:48) Comprehensive Metabolic Panel (04/04/23 07:48) Protime With Inr (04/04/23 07:48) Partial Thromboplastin Time (04/04/23 07:48) O2 (04/04/23 07:48) Monitor-Rhythm Ecg Trace Only (04/04/23 07:48) Ed Iv/Invasive Line Start (04/04/23 07:48) Lipase (04/04/23 07:48) Troponin I Fs (04/04/23 07:48) Probnp Fs (04/04/23 07:48) Hcg,Quantitative (04/04/23 07:48) Ns Iv 1000 Ml (Sodium Chloride 0.9%) (04/04/23 07:49) Orthostatic Vital Signs (Adult (04/04/23 07:49) Urine Culture (04/04/23 07:45) Vital Signs/I&O 04/04/23 04/04/23 04/04/23 07:45 08:07 08:48 Temp 36.3 Pulse 85 76 71 88 98 Resp 18 16 B/P (MAP) 137/95 (109) 110/68 (82) 105/73 115/78 (90) 114/78 (90) Pulse Ox 96 99 O2 Delivery Room Air Room Air Progress Progress Note #1: Progress Note Potential diagnosis of dehydration, anemia, UTI, cardiac arrhythmia, electrolyte imbalance. Obtain Electrocardiogram to look for arrhythmia or ischemia. Obtain orthostatic vital signs. establish peripheral IV access and check complete blood count, comprehensive metabolic panel, Lipase, Magnesium, coagulation factors, troponin, proBNP, UA, quantitative HCG, bedside test. Administer NS 1 Liter IVF bolus for hydration. Orthostatic vital signs did show stable blood pressure with changing positions but she had 22 beat jump in her heart rate from lying to standing. Continue with IVF for hydration and allow her to drink water or ice chips if she would like something by mouth. Progress Note #2: Time: 08:18 Progress Note UA does not appear concentrated as her specific gravity is 1.010. Complete blood count shows normal WBC of 7.4 and normal hemoglobin of 13.9. Coagulation factors are also normal and not elevated or showing coagulopathy. Progress Note #3: Time: 08:40 Progress Note Comprehensive metabolic panel did not show any acute significant electrolyte abnormality. Her renal function and hepatic function were normal. She had a negative troponin at less than 0.3 and her proBNP was not elevated. Her lipase was also not elevated to indicate pancreatitis. Her quantitative hCG was 13 427. This was appropriate change from March 27 when it was 629. Patient reports that she might be having a blighted ovum because she had one previously and acted similarly with menstrual cramping and spotting. Will update patient about the lab results and encouraged her to check back with her primary and whoever she is planning to see for as they may want to get an ultrasound and follow the hCG level. She continues to deny any urinary complaints we will defer antibiotics since she just completed a 5-day course of Macrobid from her visit on March 27. A culture was reflexed today so we will wait for the results to determine if she actually needed an antibiotic or just needs to continue to drink more fluids. Encouraged to stay well-hydrated and consider electrolyte drinks in addition to water. Check back with her primary care and/or OB. Initial ECG Impression Date: Apr 04, 2023 Initial ECG Impression Time: 07:59 Initial ECG Rate: 72 Initial ECG Rhythm: Normal Sinus Initial ECG Comparisson: Unchanged (12/16/2022) Comment On my personal interpretation and review the electrocardiogram shows a normal sinus rhythm with a heart rate of 72 bpm. She has a normal CO interval of [address] elevation. QT interval 401 ms with a QTc interval 424 ms. Overall appears similar to prior tracings in the system from December 16, 2022. Departure Impression Primary Impression: Fainting spell Additional Impressions: Dehydration Spotting affecting in first trimester Disposition: 01 HOME, SELF-CARE Condition: Stable Departure-Patient Inst. Decision time for Depature: 08:44 Referrals: MELISSA BROCK MD (PCP) Primary Care Physician Patient Instructions: Bleeding in Early ED, Fainting, Adult ED, Dehydration, Adult ED Add. Discharge Instructions: Continue to drink plenty of fluids and stay well-hydrated. Consider electrolyte drinks in addition to water to help with your hydration. If your urine culture shows that you do need an antibiotic you will get a call in 2 to 3 days letting you know about prescription to tack picker for UTI. However, the bacteria in the urine today may also just be from the skin and not truly infection in the bladder itself. Check back with your primary care provider and OB provider for continued concerns and to continue to monitor your spotting and hormone levels. Today your hCG hormone level was 13,427 this is an appropriate increase from your level on 03/27 when it was 694. All discharge instructions reviewed with patient and/or family. Voiced understanding. SHERRY SIN MD Apr 04, 2023 08:04
[2023-04-04 08:07] VITALS: BP_SYST 110; BP_SYST 114; BP_SYST 115; BP_DIAS 68; BP_DIAS 78
[2023-04-04 08:13] LABS: PROTHROMBIN TIME PATIENT 13.9 SEC (12.2-14.7)
[2023-04-04 08:36] LABS: CHLORIDE 108 MMOL/L (98-107); POTASSIUM 3.6 MMOL/L (3.6-5.0); SODIUM 142 MMOL/L (135-145)
[2023-04-04 08:37] LABS: ALANINE AMINOTRANSFERASE 15 U/L (0-55); ALBUMIN 4.4 GM/DL (3.2-4.5); ALKALINE PHOSPHATASE 98 U/L (40-136); BILIRUBIN,TOTAL 0.4 MG/DL (0.1-1.0); BUN/CREATININE RATIO 11; CALCIUM 9.3 MG/DL (8.5-10.1); CARBON DIOXIDE 22 MMOL/L (21-32); CREATININE SERUM 0.61 MG/DL (0.60-1.30); GFR ESTIMATED 121; GLUCOSE 105 MG/DL (70-105); LIPASE 24 U/L (8-78); TOTAL PROTEIN 7.1 GM/DL (6.4-8.2)
[2023-04-04 08:48] VITALS: BP 105/73
== END 2023-04-04 08:49 | disposition home or self-care (01) ==
LOC: EDUNIT# 07:36 → ER FS 07:36
DX: O99.891 Other specified diseases and conditions complicating pregnancy (principal); R55 Syncope and collapse; O99.281 Endocrine, nutritional and metabolic diseases complicating pregnancy, first trimester; E86.0 Dehydration; O20.9 Hemorrhage in early pregnancy, unspecified; Z3A.01 Less than 8 weeks gestation of pregnancy
CPT/HCPCS: 36415; 80053; 81000; 83690; 83735; 83880; 84484; 84702; 84703; 85025; 85610; 85730; 87088; 93005; 93041